=== PATIENT | male | born 1975 | race Caucasian/White ===

== ENCOUNTER 2017-05-22 16:55 | Emergency (ER) | payer MEDICAID, SELFPAY ==
[2017-05-22 17:01] VITALS: BP 135/85; PULSE 98; RESP 18; TEMP 37.1; O2SAT 96; BMI 20.9
--- NOTE | 2017-05-22 17:21 | XR_ITS ---
XR ribs BI min 4V w CXR1V COMPARISON: PA and lateral chest 04/30/2011 HISTORY: Bilateral chest wall pain TECHNIQUE: PA chest and bilateral rib oblique films FINDINGS: Lung leyva are well expanded and are clear of infiltrate. There is an old healed fracture of the right fifth rib posterior axillary line. All the remaining ribs bilaterally. Intact. There is no pneumothorax. IMPRESSION: Negative for acute rib fracture
[2017-05-22 17:24] VITALS: BP 122/81; PULSE 104; RESP 18; TEMP 36.6; O2SAT 98; BMI 21.6
--- NOTE | 2017-05-22 17:41 | HMH.EDUTC ---
[facility] [place] Clinical Impression: Rib pain on left side Disposition: Home, Self-Care Condition on Discharge: Good Instructions: DI for Chronic Pain -- Adult Additional Instructions: Take Ibuprofen as needed for pain Follow up with family doctor in 24-48 hours if no improvement or worsening of symptoms Return if needed Straight to ER if any life threatening symptoms such as trouble breathing or chest pain Prescriptions: Ibuprofen [Ibuprofen 600mg Tab] 600 mg PO Q6H PRN #20 tab PRN Reason: Moderate Pain Referrals: Arpita Carroll MD [Primary Care Provider] - Forms: Work/School Release Time of Disposition: 18:14 Medical Decision Making - Medical Records Medical records reviewed: Yes: I reviewed the patient's medical records. - Noah Inquiry Pt receiving controlled substance: No Noah was queried for this patient: No Vital Signs: 05/22/17 17:01 05/22/17 17:24 Temperature 98.8 F 98 F Temperature Source Temporal Artery Scan Temporal Artery Scan Pulse Rate [Right Radial] 98 H 104 H Respiratory Rate 18 18 Blood Pressure [Right Arm] 135/85 122/81 Blood Pressure Mean [Right Arm] 101 94 Blood Pressure Source [Right Arm] Automatic Cuff Blood Pressure Position [Right Arm] Sitting 02 Sat by Pulse Oximetry 96 98 Oxygen Delivery Method Room Air Orders (Tests/Meds): ORDERS Category Date Time Status XR ribs BI min 4V w CXR1V Stat Exams 05/22/17 17:21 Taken - Radiology Data #1 Image(s): Other (left rib pain) Image Reviewed: Yes I reviewed the patient's radiology image w/the ED provider Preliminary Findings: Normal/NAD, No Fracture Seen Discussed Dr Jean Baptiste no acute finding [facility] [place] - General Stated complaint: Left rib pain Time Seen by Provider: 05/22/17 17:10 Mode of Arrival: Family Vehicle Source of Information: Patient Limitations: No Limitations Description of Symptoms (Recalled from Triage Doc. by RN): C/O SORE RIBS SINCE THIS AM. NO KNOW INJURY HEENT Symptoms (Recalled from RN notes): No Resp Symptoms (Recalled from RN notes): No Skin Symptoms (Recalled from RN notes): No MS Symptoms (Recalled from RN notes): Yes Functional Status (Recalled from RN notes): N/A - History of Present Illness Provider Complaint: Patient states that he woke up about 4am this morning with pain in his left lower rib area that hurts with movement States that he has not hurt himself or his ribs that he is aware of State that pain is worse with movement or cough Denies SOA, Denies injury - Related Data Home Medications Medication Instructions Recorded Confirmed LORazepam [Ativan 0.5mg tablet] 0.5 mg PO TID 05/22/17 05/22/17 Metoprolol Tartrate [Lopressor 25 mg PO DAILY 05/22/17 05/22/17 25mg tablet] hydroCHLOROthiazide [HCTZ 12.5mg 12.5 mg PO DAILY 05/22/17 05/22/17 cap] Previous Rx's Medication Instructions Recorded Ibuprofen [Ibuprofen 600mg Tab] 600 mg PO Q6H PRN #20 tab 05/22/17 Allergies Allergy/AdvReac Type Severity Reaction Status Date / Time Iodinated Contrast Media - Allergy Verified 05/22/17 17:30 Oral and - Worker's Comp Is this a Worker's Comp case?: No H History I have reviewed the patient's past medical history: Yes - Social History Smoking Status: Current every day smoker Tobacco Type: cigarettes Alcohol Intake: never - Psychiatric History Expresses thoughts of harming self/others: None Suicide Plan Description: No Plan ROS Obtained: Yes All systems reviewed & no additional complaints Physical Exam - General General appearance: alert, in no apparent distress - Chest Chest inspection: Present: normal inspection, symmetric chest wall rise. Absent: tenderness - Respiratory Respiratory exam: Present: normal lung sounds bilaterally. Absent: respiratory distress - Cardiovascular Cardiovascular exam: Present: regular rate, normal rhythm. Absent: JVD - Abdominal Exam Abdominal exam: Present: soft, normal bowel sounds. A
--- NOTE | 2017-05-22 17:46 | ED_ITS ---
[facility] [place] Clinical Impression: Rib pain on left side Disposition: Home, Self-Care Condition on Discharge: Good Instructions: DI for Chronic Pain -- Adult Additional Instructions: Take Ibuprofen as needed for pain Follow up with family doctor in 24-48 hours if no improvement or worsening of symptoms Return if needed Straight to ER if any life threatening symptoms such as trouble breathing or chest pain Prescriptions: Ibuprofen [Ibuprofen 600mg Tab] 600 mg PO Q6H PRN #20 tab PRN Reason: Moderate Pain Referrals: Arpita Carroll MD [Primary Care Provider] - Forms: Work/School Release Time of Disposition: 18:14 Medical Decision Making - Medical Records Medical records reviewed: Yes: I reviewed the patient's medical records. - Noah Inquiry Pt receiving controlled substance: No Noah was queried for this patient: No Vital Signs: 05/22/17 17:01 05/22/17 17:24 Temperature 98.8 F 98 F Temperature Source Temporal Artery Scan Temporal Artery Scan Pulse Rate [Right Radial] 98 H 104 H Respiratory Rate 18 18 Blood Pressure [Right Arm] 135/85 122/81 Blood Pressure Mean [Right Arm] 101 94 Blood Pressure Source [Right Arm] Automatic Cuff Blood Pressure Position [Right Arm] Sitting 02 Sat by Pulse Oximetry 96 98 Oxygen Delivery Method Room Air Orders (Tests/Meds): ORDERS Category Date Time Status XR ribs BI min 4V w CXR1V Stat Exams 05/22/17 17:21 Taken - Radiology Data #1 Image(s): Other (left rib pain) Image Reviewed: Yes I reviewed the patient's radiology image w/the ED provider Preliminary Findings: Normal/NAD, No Fracture Seen Discussed Dr Jean Baptiste no acute finding [facility] [place]PI - General Stated complaint: Left rib pain Time Seen by Provider: 05/22/17 17:10 Mode of Arrival: Family Vehicle Source of Information: Patient Limitations: No Limitations Description of Symptoms (Recalled from Triage Doc. by RN): C/O SORE RIBS SINCE THIS AM. NO KNOW INJURY HEENT Symptoms (Recalled from RN notes): No Resp Symptoms (Recalled from RN notes): No Skin Symptoms (Recalled from RN notes): No MS Symptoms (Recalled from RN notes): Yes Functional Status (Recalled from RN notes): N/A - History of Present Illness Provider Complaint: Patient states that he woke up about 4am this morning with pain in his left lower rib area that hurts with movement States that he has not hurt himself or his ribs that he is aware of State that pain is worse with movement or cough Denies SOA, Denies injury - Related Data Home Medications Medication Instructions Recorded Confirmed LORazepam [Ativan 0.5mg tablet] 0.5 mg PO TID 05/22/17 05/22/17 Metoprolol Tartrate [Lopressor 25 mg PO DAILY 05/22/17 05/22/17 25mg tablet] hydroCHLOROthiazide [HCTZ 12.5mg 12.5 mg PO DAILY 05/22/17 05/22/17 cap] Previous Rx's Medication Instructions Recorded Ibuprofen [Ibuprofen 600mg Tab] 600 mg PO Q6H PRN #20 tab 05/22/17 Allergies Allergy/AdvReac Type Severity Reaction Status Date / Time Iodinated Contrast Media - Allergy Verified 05/22/17 17:30 Oral and - Worker's Comp Is this a Worker's Comp case?: No H History I have reviewed the patient's past medical history: Yes - Social History Smoking Status: Current ev
[2017-05-22 18:20] VITALS: BP 120/78; PULSE 94; RESP 20; TEMP 36.6; O2SAT 98
== END 2017-05-22 18:21 | disposition home or self-care (01) ==
PROVIDERS: Emergency Provider Nurse Practitioner; Family Provider Family Medicine; PCP Family Medicine
DX: R07.89 Other chest pain (principal); F17.210 Nicotine dependence, cigarettes, uncomplicated
CPT/HCPCS: 71111; 99201

== ENCOUNTER → 2018-05-25 17:18 | Outpatient (CLI) | payer MEDICAID, SELFPAY ==
--- NOTE | 2018-05-25 | XR_ITS ---
XR chest 2V HISTORY: ITS.REASON: COUGH, RIB PAIN, WEIGHT LOSS ORDERING PHYSICIAN: Arpita Carroll MD PATIENT AGE: 42 years COMPARISON: None FINDINGS: The cardiomediastinal silhouette and pulmonary vascularity are within normal limits. The lungs are clear without infiltrates, suspicious nodules, or pleural effusions. There is a pectus excavatum deformity resultant silhouetting out of the right heart border. There is normal right fifth rib fracture. No acute bony abnormalities. IMPRESSION: As above, no change with no acute finding
== END ==
PROVIDERS: PCP Family Medicine; Visit Provider Family Medicine
DX: R05 Cough (principal); R07.81 Pleurodynia; R63.4 Abnormal weight loss
CPT/HCPCS: 71046

== ENCOUNTER → 2019-01-28 14:26 | Outpatient (CLI) | payer OTHER, SELFPAY ==
--- NOTE | 2019-01-28 14:40 | ECG_ITS ---
APPROVED REPORT Exam: Resting ECG HR:134 bpm ECG Measurements Heart Rate 134 AXES IA 158 P 84 QRSd 88 QRS 95 QT 272 T 75 QTc 406 <Conclusion> Sinus tachycardia Biatrial enlargement Rightward axis Pulmonary disease pattern Abnormal ECG Electronically signed by : Raffi Durán, 01/28/2019 18:20:08
[2019-01-28 15:13] LABS: Basophils % 0.5 % (0.1-2.0); Eosinophils % 0.4 % (0.1-12.0); Hemoglobin 17.2 g/dL (14.1-18.0); Lymphocytes % 13.8 % (10-50); Mean Corpuscular HGB Conc 34.3 g/dL (31.8-35.4); Mean Corpuscular Hemoglobin 34.7 pg (27.0-31.2); Mean Corpuscular Volume 100.9 fl (80-94); Mean Platelet Volume 7.8 fl (7.4-10.4); Monocytes # 0.7 K/mm3 (0.1-1.0); Monocytes % 9.9 % (1.7-9.3); Neutrophils # 5.3 K/mm3 (1.8-7.8); Neutrophils % 75.5 % (37.0-80.0); Platelet Count 133 K/mm3 (142-424); Red Blood Count 4.96 M/mm3 (4.60-6.20); Red Cell Distribution Width 12.5 % (11.5-17.5)
[2019-01-28 16:53] LABS: Alanine Aminotransferase 65 U/L (12-78); Albumin Level 4.4 gm/dL (3.4-5.0); Albumin/Globulin Ratio 0.9 (1.1-1.8); Alkaline Phosphatase 73 U/L (46-116); Amylase 64 U/L (25-115); Anion Gap 18.7 mEq/L (5-15); Aspartate Amino Transferase 92 U/L (15-37); Bilirubin,Total 1.1 mg/dL (0.2-1.0); Blood Urea Nitrogen 8 mg/dL (7-18); Calcium 9.2 mg/dL (8.5-10.1); Carbon Dioxide 29 mmol/L (21.0-32.0); Chloride 91 mmol/L (98-107); Estimated Glomerular Filt Rate 81 ml/min (>60); Ferritin 498 ng/mL (8-388); GFR (African American) 98 ML/MIN (>60); Gamma Glutamyl Transpeptidase 125 U/L (15-85); Globulin 4.8 gm/dl (1.3-3.2); Glucose 162 mg/dL (74-106); Lipase 347 u/L (73-393); Sodium 136 mmol/L (136-145); Thyroid Stimulating Hormone 0.74 uIU/ml (0.358-3.740); Total Protein,Serum 9.2 gm/dL (6.4-8.2)
[2019-01-28 17:27] LABS: Potassium 2.7 mmoL/L (3.5-5.1)
[2019-01-30 11:33] LABS: Hep A Ab, IgM Negative (Negative); Hepatitis B Core Antibody IgM Negative (Negative); Hepatitis B Surface Antigen Negative (Negative)
[2019-01-31 02:39] LABS: Hepatitis C Antibody <0.1 s/co ratio (0.0-0.9)
[2019-02-03 21:14] LABS: Antinuclear Antibodies (ANA) NEGATIVE
== END ==
PROVIDERS: PCP Nurse Practitioner Family; Visit Provider Nurse Practitioner Family
DX: R00.0 Tachycardia, unspecified (principal); R11.2 Nausea with vomiting, unspecified; R10.9 Unspecified abdominal pain; R63.4 Abnormal weight loss
CPT/HCPCS: 36415; 80053; 80074; 82150; 82728; 82977; 83690; 83735; 84439; 84443; 85025; 86038; 86225; 86235; 93005

== ENCOUNTER → 2019-08-24 15:53 | Outpatient (CLI) | payer OTHER, SELFPAY ==
--- NOTE | 2019-08-24 | XR_ITS ---
PROCEDURE: XR CERVICAL SPINE 4V CLINICAL INDICATION: Neck pain and headache COMPARISON: No exams were available for comparison FINDINGS: Normal alignment. The lateral view is slightly rotated. Degenerative disc disease C4-C5 C5-C6 and C6-C7. No acute fracture or dislocation. Mild cervical curvature convex right. There is mild foraminal narrowing on the right at C5-C6 from uncovertebral hypertrophy. IMPRESSION: Cervical spondylosis as described above. Dictated by: Mustapha Dempsey MD 08/24/2019 16:51 Electronically signed by Mustapha Dempsey MD in [place] 08/24/2019 16:51
== END ==
PROVIDERS: PCP Family Medicine; Visit Provider Family Medicine
DX: M54.2 Cervicalgia (principal)
CPT/HCPCS: 72050

== ENCOUNTER 2019-10-07 15:30 | Outpatient (RCR) | payer OTHER, SELFPAY | END 2019-10-07 15:35 | disposition home or self-care (01) | LOC: PT 15:30 | PROVIDERS: PCP Family Medicine; Visit Provider Family Medicine | DX: M54.2 Cervicalgia (principal) | CPT/HCPCS: 20560; 97010; 97012; 97014; 97035; 97110; 97140; 97163; G0283 ==

== ENCOUNTER 2019-11-02 07:47 | Outpatient (RCR) | payer OTHER, SELFPAY ==
--- NOTE | 2019-11-02 08:22 | HMH.PTOPEV ---
PT Outpatient Evaluation Rehab PT Outpatient Evaluation Start: 11/02/19 08:15 Freq: Status: Active Protocol: Document 11/02/19 08:15 GHASSAN (Rec: 11/02/19 08:22 GHASSAN [id number]) Electronically Signed By Dave Kilpatrick, PT 11/02/19 08:15 Outpatient Therapy Subjective History Subjective History Pt reports h/o chronic neck since waking up on the morning of 08/13/19, insidious onset pain. Pt reports localized L sided neck from the outset, and improved s/s w/PT treatments ~1 month ago. Pt reports slight exacerbation since D/C from therapy. Pt currently reports localized L sided neck pain, no radicular s/s. Chief Complaint Pain,Stiff,Catches/Locks Symptom Type Ache,Sharp,Dull Symptoms Relieved By Rest/Positioning Symptoms Aggravated By Physical Activity,Lifting Prior Functional Limitations Lifting,Housework Current Functional Limitations Lifting,Housework Symptom Description Constant but Variable Level of pain today (0-10) 2 Pain scale - at its best (0-10) 2 Pain scale - at its worst (0-10) 5 Cervical Eval Palpation Cervical Muscles L Cervical Paraspinal,L Suboccipital,L CT Junction Cervical/Thoracic Palpation Findings Tenderness,Trigger Point Posture Head/C-Spine Posture Sitting Position Flexed Head/C-Spine Posture Standing Position Flexed Flexibility Deficits Levaetor Scapulae Muscle Length (L) Mild Tightness Scalene Group Muscle Length (L) Moderate Tightness Passive Joint Mobility Cervical PIVM Dec: R OA L OA R AA L AA R C2/3 L C2/3 R C3/4 L C3/4 R C4/5 L C4/5 R C5/6 L C5/6 R C6/7 L C6/7 R C7/T1 L C7/T1 AROM Cervical Spine Extension Active Range of 0-15 Motion (degrees) Cervical Spine Flexion Active Range of 0-55 Motion (degrees) Cervical Spine Right Lateral Flexion 0-15 Active Range of Motion (degrees) Cervical Spine Left Lateral Flexion
== END 2019-11-02 09:00 | disposition home or self-care (01) ==
LOC: PT 07:47
PROVIDERS: PCP Family Medicine; Visit Provider Family Medicine
DX: M54.2 Cervicalgia (principal)
CPT/HCPCS: 97163

== ENCOUNTER 2020-01-24 16:23 | Emergency (ER) | payer OTHER, SELFPAY ==
[2020-01-24 16:51] VITALS: BP 109/72; PULSE 86; RESP 19; TEMP 36.8; O2SAT 99; BMI 19.5
--- NOTE | 2020-01-24 17:00 | HMH.EDUTC ---
[facility] [place] [facility] [place] Clinical Impression: Encounter for laboratory testing for COVID-19 virus Disposition: Home, Self-Care Condition on Discharge: Good Instructions: Preventing the Spread of Coronavirus Discharge Instructions Additional Instructions: *Monitor Temp, Over the counter Motrin or Tylenol as directed/as needed Tylenol every 4 hours and Motrin every 6 hours (as long as your family doctor has told you that you can take it) for fever or pain. and straight to ER if unable to lower temp less than 101.0 after medication given *Warm salt water gargles may help to soothe the throat *Throat Lozenges *Warm fluids like tea with honey may help to soothe the throat *Sleep elevated *Humidifier/Vaporizer Follow up IMMEDIATELY for new or worsening symptoms or no Noticeable improvement over the next 48-72 hours. 911 for difficulty breathing or swallowing You were tested for today for COVID19 your test result should be back in the next 24-48 hours, you may call to the [facility] to see if your test results are back in the next 48 hours [phone] [facility] hours are 9am-9pm You was given a handout with instructions for Self Quarantine and Self isolation for while you wait on test results and what to do if they are positive If you are positive the Health Dept will be contacting you also Referrals: Arpita Carroll MD [Primary Care Provider] - As needed Forms: Work/School Release Time of Disposition: 17:04 Medical Decision Making - Noah Inquiry Pt receiving controlled substance: No Noah was queried for this patient: No Vital Signs: 01/24/20 16:51 Temperature 98.2 F Temperature Source Oral Pulse Rate [Radial] 86 Respiratory Rate 19 Blood Pressure [Right Arm] 109/72 L Blood Pressure Mean [Right Arm] 84 Blood Pressure Source [Right Arm] Automatic Cuff Blood Pressure Position [Right Arm] Sitting 02 Sat by Pulse Oximetry 99 Oxygen Delivery Method Room Air Orders (Tests/Meds): ORDERS Category Date Time Status Covid-19 Nasal PCR Sendout Mark Stat Lab 01/24/20 16:41 Ordered [facility] [place] [facility] [place] - General Stated complaint: covid test no known exposure sore throat Time Seen by Provider: 01/24/20 17:00 Mode of Arrival: Ambulatory Source of Information: Patient Limitations: No Limitations Description of Symptoms (Recalled from Triage Doc. by RN): wants covid test. no symptoms HEENT Symptoms (Recalled from RN notes): No Resp Symptoms (Recalled from RN notes): No Skin Symptoms (Recalled from RN notes): No MS Symptoms (Recalled from RN notes): No Functional Status (Recalled from RN notes): wnl - History of Present Illness Provider Complaint: Patient state that he recently attended a wedding and no one was wearing a mask States that he lives with his elderly mother and after he got home he came in to get tested States that he is an everyday smoker and always has a cough but denies any symptoms - Related Data Home Medications Medication Instructions Recorded Confirmed Metoprolol Tartrate [Lopressor 25 mg PO DAILY 05/22/17 04/04/19 25mg tablet] hydroCHLOROthiazide [HCTZ 12.5mg 12.5 mg PO DAILY 05/22/17 04/04/19 cap] Previous Rx's Medication Instructions Recorded Famotidine [Pepcid 20mg Tablet] 20 mg PO BID #60 tab 04/04/19 Allergies Allergy/AdvReac Type Severity Reaction Status Date / Time Iodinated Contrast Media Allergy Verified 05/22/17 17:30 - Worker's Comp Is this a Worker's Comp case?: No [facility] History - Hepatitis A Screen Drug use history?: No High risk sexual behaviors?: No History of sexually transmitted infection?: No Currently employed?: No Childcare worker?: No Do you have indoor plumbing?: Yes Do you have electricity?: Yes Attestation statement:: This patient has been screened for Hepatitis A risk factors. I have reviewed the patient's past medical history: Yes Medical History: Denies:: Cancer, Diabetes Mellitus Type 1, Diabetes Mellitus Type 2, Internal Pacemaker, MRSA
[2020-01-24 17:26] VITALS: BP 109/73; PULSE 86; RESP 19; TEMP 36.8; O2SAT 99
[2020-01-26 12:34] LABS: Covid-19 Nasal PCR Sendout Lex Not Detected
== END 2020-01-24 17:28 | disposition home or self-care (01) ==
PROVIDERS: Emergency Provider Nurse Practitioner; PCP Family Medicine
DX: Z20.828 Contact with and (suspected) exposure to other viral communicable diseases (principal); F17.210 Nicotine dependence, cigarettes, uncomplicated
CPT/HCPCS: 99201; U0004

== ENCOUNTER 2020-10-15 01:54 | Emergency (ER) | payer OTHER, SELFPAY ==
[2020-10-15 02:05] VITALS: BP 138/107; PULSE 80; RESP 17; TEMP 37.3; O2SAT 99; BMI 18.8
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
[2020-10-15 03:06] VITALS: BP 124/70; PULSE 75; RESP 18; TEMP 36.8; O2SAT 98
== END 2020-10-15 03:07 | disposition home or self-care (01) ==
PROVIDERS: Emergency Provider Emergency Medicine; PCP Family Medicine
DX: S62.346A Nondisplaced fracture of base of fifth metacarpal bone, right hand, initial encounter for closed fracture (principal); W22.09XA Striking against other stationary object, initial encounter; Y92.019 Unspecified place in single-family (private) house as the place of occurrence of the external cause; I10 Essential (primary) hypertension; F17.210 Nicotine dependence, cigarettes, uncomplicated
CPT/HCPCS: 73130; 99282

== ENCOUNTER → 2020-10-17 09:50 | Outpatient (CLI) | payer OTHER, SELFPAY ==
--- NOTE | 2020-10-17 10:00 | XR_ITS ---
PROCEDURE: XR CHEST 2V CLINICAL HISTORY: surgery 10/18/20; smoker/ hypertensioni COMPARISON: CR [id number] XR ribs BI min 4V w CXR1V from 05/22/2017 CR CXR2V XR chest 2V from 04/21/2018 CR CXR2V XR chest 2V from 05/25/2018 FINDINGS: The cardiomediastinal silhouette and pulmonary vascularity are within normal limits. COPD changes. Healing fracture is present involving the left 5th and 6th ribs posteriorly. Pectus excavatum deformity is noted. No acute bony abnormalities. IMPRESSION: COPD with pectus excavatum. No change with no acute finding. Dictated by: Mustapha Dempsey MD 10/17/2020 14:59 Mustapha Dempsey MD in [place] 10/17/2020 14:59
[2020-10-17 10:29] LABS: Basophils # 0.1 K/mm3 (0-0.2); Basophils % 0.7 % (0.1-2.0); Eosinophils # 0.5 K/mm3 (0.0-0.4); Eosinophils % 3.9 % (0.1-12.0); Hematocrit 45.9 % (42.0-52.0); Hemoglobin 14.6 g/dL (14.1-18.0); Lymphocytes # 2.9 K/mm3 (0.7-4.5); Lymphocytes % 25.3 % (10-50); Mean Corpuscular HGB Conc 31.9 g/dL (31.8-35.4); Mean Corpuscular Hemoglobin 32.5 pg (27.0-31.2); Mean Corpuscular Volume 101.8 fl (80-94); Mean Platelet Volume 8.1 fl (7.4-10.4); Monocytes # 0.6 K/mm3 (0.1-1.0); Monocytes % 5.5 % (1.7-9.3); Neutrophils # 7.4 K/mm3 (1.8-7.8); Neutrophils % 64.6 % (37.0-80.0); Platelet Count 349 K/mm3 (142-424); Red Blood Count 4.51 M/mm3 (4.60-6.20); Red Cell Distribution Width 14.6 % (11.5-17.5); White Blood Count 11.5 K/mm3 (4.8-10.8)
[2020-10-17 19:13] LABS: Chloride 100 mmol/L (98-107)
[2020-10-17 19:14] LABS: Sodium 139 mmol/L (136-145)
[2020-10-17 19:16] LABS: Alanine Aminotransferase 16 U/L (12-78); Alkaline Phosphatase 71 U/L (38-126); Aspartate Amino Transferase 28 U/L (17-59); Bilirubin,Total 0.3 mg/dl (0.2-1.3); Blood Urea Nitrogen 9 mg/dl (9-20); Estimated Glomerular Filt Rate 144 ml/min (>60); GFR (African American) 175 ML/MIN (>60)
[2020-10-17 19:17] LABS: Albumin Level 4.3 g/dl (3.5-5.0); Albumin/Globulin Ratio 1.3 (1.1-1.8); Calcium 9.6 mg/dl (8.4-10.2); Carbon Dioxide 29 mmol/L (22.0-30.0); Globulin 3.3 g/dL (1.3-3.2); Glucose 96 mg/dl (74-100); Total Protein,Serum 7.6 g/dl (6.3-8.2)
== END ==
PROVIDERS: Visit Provider Orthopaedic Surgery
DX: Z01.818 Encounter for other preprocedural examination (principal); Z11.52 Encounter for screening for COVID-19; S62.306A Unspecified fracture of fifth metacarpal bone, right hand, initial encounter for closed fracture
CPT/HCPCS: 36415; 71046; 80053; 85025; U0003

== ENCOUNTER 2020-10-18 07:51 | Day surgery (SDC) | payer OTHER, SELFPAY ==
[2020-10-17 12:58] VITALS: BMI 19.5
[2020-10-18] VITALS (10 sets, daily range): BP systolic 119–164; BP diastolic 39–95; PULSE 73–84; RESP 16–20; TEMP 36.3–36.9; O2SAT 95–99
--- NOTE | 2020-10-18 | XR_ITS ---
PROCEDURE: XR FINGER RT MIN 2V CLINICAL INDICATION: K WIRE INSERTION IN SURGERY COMPARISON: No exams were available for comparison FINDINGS: Fluoroscopy time: 54 seconds. C-arm is utilized for K-wire insertion at the base of the 5th metacarpal. Crossing wires are placed with good alignment. IMPRESSION: Good alignment status post pinning of the 5th metacarpal fracture Dictated by: Mustapha Dempsey MD 10/18/2020 16:16 Mustapha Dempsey MD in [place] 10/18/2020 16:16
--- NOTE | 2020-10-18 08:31 | HMH.ANESCL ---
[facility] Anesthesia Checklist - Patient Identification Patient Identification: Arm Band, Verbal (Name & ) - Structural Data Admitted From: Home Planned Operative Procedure/s: closed reduction finger Consent for Planned Operative Procedure(s) Verified: Yes Verified Documents: History and Physical - NPO Status Verified Time NPO: 00:00 - Additional verifications Patient : No Anesthesia Reactions: No Hx Blood Transfusions: No Blood Transfusion Reaction: No Cephalosporin Allergy: No Previous Colonoscopy: No - Cardiovascular Assessment Heart Sounds: S1 & S2 Pulse Strength: Baseline Pulse Rhythm: Regular Peripheral Edema: No - Airway Assessment C-Spine Mobility Assessed: Yes TMJ Mobility Assessed: Yes Dentition: Poor Dentition - Neurological Assessment Level of Consciousness: Awake, Alert, Appropriate Hx Seizures: No Numbness or tingling in extremities: No - Anesthesia Plan Anesthesia Risk discussed: Yes Anesthesia Plan: Verified ASA Class: III Anesthesia Type: General [facility] History I have reviewed the patient's past medical history: Yes Medical History: Reports:: Anxiety, Hypertension Denies:: Cancer, Diabetes Mellitus Type 1, Diabetes Mellitus Type 2, Internal Pacemaker, MRSA, Seizures *Have you ever received a pneumonia vaccine?: No *Have you received a flu vaccine this season?: No Other Medical History: Denies: Blood Transfusion Reaction Anesthesia experience/problems:: none Other Surgeries: No: Pacemaker Amputation: No Fractures: No - *Social History Last grade of school completed: Some college Smoking Status: Current every day smoker Tobacco Type: cigarettes # Packs/Day (cigarettes): 1 Alcohol Intake: never Alcohol Intake Frequency:: a few times a week Substance Use Type: marijuana Last Used Substance: unknown *Occupational Status:: other Housing: house Household Members: significant other *Travel in the last 8 weeks: None - Psychiatric History Pschychiatric History:: Reports:: Anxiety Family Hx:: Cancer
--- NOTE | 2020-10-18 10:50 | P.PN_ITS ---
[facility] Anesthesia Record Part I Intake, IV Amount: 750 Estimated blood loss (mL): 0 Urine output (mL): 0 Blood Products used (#): none Blood Pressure: 164/95 SaO2: 97 Pulse Rate: 82 Respiratory Rate: 18 Temperature: 98.3 F Patient is:: Awake, Stable Stable to PACU at:: 10:44
--- NOTE | 2020-10-18 11:16 | PC.NURSE ---
1114-pt transferred to post op at this time, vss, pt stable
--- NOTE | 2020-10-18 11:43 | HMH.OPNOTE ---
Date of procedure: 10/18/20 Pre-op Diagnosis:: Closed, displaced fracture base of fifth metacarpal, right hand Post-op Diagnosis:: Same Procedure performed:: Closed reduction and percutaneous K wire fixation for fifth metacarpal fracture, right hand Surgeon:: Markie Higgins MD Rubber Turner(s):: Jami Tavares PA-C [employer] LIBRARY DIRECTOR:: Other (Murray Ramos) Anesthesia: LMA Estimated blood loss (mL): 1 Clinical Note:: Patient is a 45-year-old [id number] male, who sustained a closed, displaced fracture base of the fifth metacarpal of his RIGHT hand with partial displacement and slight rotational malalignment of the finger. He injured the hand when he punched a refrigerator in anger about 4 days ago. The distal fracture fracture fragment is displaced proximally and dorsally on x-ray and clinically there is mild rotational malalignment of the finger. Following a detailed discussion about the management options including both nonsurgical and surgical with the patient opted for a closed or open reduction and percutaneous pinning/internal fixation as appropriate. Please refer to my office note for full details. Operative findings:: Closed, partially displaced fifth metacarpal base fracture of RIGHT hand with mild rotational malalignment of the finger. The fracture was easily reducible and the finger alignment corrected by closed manipulation. Operative note:: On the day of the procedure the patient and his family were met in the preoperative area and positively identified. The site was appropriately marked. A physical examination was performed and documented. I again discussed the management options including both nonsurgical and surgical. I discussed the proposed surgery, risks and benefits and alternatives in detail. He wished to proceed with surgical remediation. Patient understood the risks, agreed to proceed with the surgery and no guarantees or assurances were given. The patient was brought to the operating room and placed supine on the operating table. The RIGHT upper extremity was placed on a hand table. All the bony prominences were appropriately padded. A general anesthesia was administered by the pipeline technician. Administration of preoperative prophylactic antibiotics was confirmed. A well-padded tourniquet cuff was placed over his the RIGHT upper arm but we did not need to use a tourniquet. The RIGHT hand was prepped and draped in the usual sterile fashion. A preprocedure timeout was performed as per protocol. Under fluoroscopy the fracture was easily reduced by closed manipulation and the finger rotation was corrected. The fracture base of the fifth metacarpal was then stabilized with a retrograde percutaneous K wire, the tip of which was advanced into the hamate. Then a second K wire was placed from the base of the fifth metacarpal across the fracture into the distal fragment in an antegrade fashion. The fracture was cleaned under fluoroscopic control and noted to be well reduced and fixed in a stable fashion. The hand was examined for any rotational malalignment. After making sure the alignment is satisfactory without any residual rotational deformity, and confirming satisfactory reduction and fixation under fluoroscopy the K wires were bent and cut outside the skin. We then placed the protective end caps over the cut end of the K wires. Final fluoroscopic images were obtained and stored. The skin and soft tissue around the incision were infiltrated with 10 mL of 0.5 percent Marcaine with epinephrine. Sterile dressings, mica strapping and ulnar gutter splint were applied. The patient was then reversed from the anesthetic and transferred onto the [facility]. He was then transported to the postoperative recovery area in a stable condition. He tolerated the procedure well and there were no immediate complications. The swab, needle and instrument counts were correct at the end of the procedure as per the scrub team. Following recovery from the anesthetic the patie
--- NOTE | 2020-10-18 13:05 | P.PN_ITS ---
[facility] Anesthesia Record Part II Discharge Time: 11:14 Destination: Surgical Day Care (OP Surgery) PACU nurse assessment reviewed?: Yes Patient Condition:: Good Anesthesia Complications:: None Swallowing reflex intact?: Yes Cyanosis?: No Blood Pressure: 128/80 Pulse Rate: 75 Temperature: 98.1 F Mental Status: Alert & Oriented Pain level:: 2 Nausea and/or vomitting:: None Intake, IV Amount: 50
== END 2020-10-18 11:45 | disposition home or self-care (01) ==
LOC: OR 07:53
PROVIDERS: PCP Family Medicine; Visit Provider Orthopaedic Surgery
PROC: (CPT 26608; principal; 2020-10-18 09:00)
DX: S62.316A Displaced fracture of base of fifth metacarpal bone, right hand, initial encounter for closed fracture (principal); W22.8XXA Striking against or struck by other objects, initial encounter; F17.210 Nicotine dependence, cigarettes, uncomplicated
CPT/HCPCS: 26608; 73140; 76000; 96374; J2405

== ENCOUNTER → 2020-10-24 15:43 | Outpatient (CLI) | payer OTHER, SELFPAY ==
--- NOTE | 2020-10-24 15:46 | XR_ITS ---
PROCEDURE: XR HAND RT MIN 3V CLINICAL INDICATION: s/p RT 4th MC COMPARISON: CR XR HAND RT MIN 3V from 10/15/2020 FINDINGS: 2 crossing K-wires noted along the proximal aspect of the 5th metacarpal stabilizing the previously described fracture which is in good alignment. And medial splint is in place. The joint spaces are well-preserved. No significant degenerative/arthritic changes. No erosive changes evident. Other findings:None. IMPRESSION: Good alignment status post pinning right 5th metacarpal fracture Dictated by: Mustapha Dempsey MD 10/24/2020 15:59 Mustapha Dempsey MD in [place] 10/24/2020 15:59
== END ==
PROVIDERS: PCP Family Medicine; Visit Provider Orthopaedic Surgery
DX: S62.306A Unspecified fracture of fifth metacarpal bone, right hand, initial encounter for closed fracture (principal)
CPT/HCPCS: 73130

== ENCOUNTER → 2020-11-13 09:39 | Outpatient (CLI) | payer OTHER, SELFPAY ==
--- NOTE | 2020-11-13 09:43 | XR_ITS ---
PROCEDURE: XR HAND RT MIN 3V CLINICAL INDICATION: sp closed reduction and k wire fixation,dos 10/18/20 COMPARISON: CR XR HAND RT MIN 3V from 10/15/2020 CR XR HAND RT MIN 3V from 10/24/2020 FINDINGS: K-wires remain in place stabilizing the fracture at the base of the 5th metacarpal. There is good alignment. Splint has been removed. The joint spaces are well-preserved. No significant degenerative/arthritic changes. No erosive changes evident. Other findings:None. IMPRESSION: Good alignment status post K-wire fixation 5th metacarpal fracture Dictated by: Mustapha Dempsey MD 11/13/2020 12:00 Mustapha Dempsey MD in [place] 11/13/2020 12:00
== END ==
PROVIDERS: PCP Family Medicine; Visit Provider Orthopaedic Surgery
DX: Z09 Encounter for follow-up examination after completed treatment for conditions other than malignant neoplasm (principal)
CPT/HCPCS: 73130

== ENCOUNTER → 2020-12-04 10:39 | Outpatient (CLI) | payer OTHER, SELFPAY ==
--- NOTE | 2020-12-04 10:45 | XR_ITS ---
PROCEDURE: XR HAND RT MIN 3V CLINICAL INDICATION: s/p right 4th MC COMPARISON: CR XR HAND RT MIN 3V from 10/15/2020 CR XR HAND RT MIN 3V from 10/24/2020 CR XR HAND RT MIN 3V from 11/13/2020 FINDINGS: There has been interval removal of the K-wires with good alignment of the 5th metacarpal fracture. There is a faint transverse lucency through the proximal aspect of the 4th metacarpal possibly related to postsurgical change or nondisplaced fracture. The joint spaces are well-preserved. No significant degenerative/arthritic changes. No erosive changes evident. Other findings:None. IMPRESSION: Good alignment healing 5th metacarpal fracture. Possible nondisplaced fracture versus for surgical change proximal 4th metacarpal. Dictated by: Mustapha Dempsey MD 12/04/2020 11:30 Mustapha Dempsey MD in [place] 12/04/2020 11:30
== END ==
PROVIDERS: PCP Family Medicine; Visit Provider Orthopaedic Surgery
DX: S62.316D Displaced fracture of base of fifth metacarpal bone, right hand, subsequent encounter for fracture with routine healing (principal); Z09 Encounter for follow-up examination after completed treatment for conditions other than malignant neoplasm
CPT/HCPCS: 73130

== ENCOUNTER 2021-03-11 11:33 | Observation (INO) | payer OTHER, SELFPAY ==
[2021-03-11] VITALS (13 sets, daily range): BP systolic 119–164; BP diastolic 79–98; PULSE 81–99; RESP 15–18; TEMP 36.8–37.2; O2SAT 97–100; BMI 21.5; BMI 20.9; BMI 19.1
--- NOTE | 2021-03-11 11:41 | CT_ITS ---
FINAL REPORT TECHNIQUE: Axial CT images were performed through the brain. Coronal reformats were submitted and reviewed. This study was performed with techniques to keep radiation doses as low as reasonably achievable (ALARA). Individualized dose reduction techniques using automated exposure control or adjustment of mA and/or kV according to the patient's size were employed. CLINICAL HISTORY: poss szr, h/o brain tumor surgery FINDINGS: There is Mild atrophy and associated ex vacuo dilatation of the ventricles. There is no mass effect or midline shift. There is no acute hemorrhage. The posterior fossa is without acute abnormality. There is minimal mucoperiosteal thickening in the sphenoid sinus. there is a large midline frontal craniotomy defect with overlying mesh. IMPRESSION: Large midline frontal craniotomy defect. Atrophy. No acute intracranial abnormality. Reviewed, Interpreted and Dictated by Tommy Zhang MD Transcribed by Garland Rowland Authenticated by Tommy Zhang MD on 03/11/2021 01:02:22 PM [facility]
--- NOTE | 2021-03-11 11:42 | HMH.EDGENADL ---
ED Disposition Clinical Impression: GWEN (acute kidney injury), COVID-19, Hypokalemia Disposition: Admitted As Inpatient Condition on Discharge: Good Referrals: Arpita Carroll MD [Primary Care Provider] - - Critical Care Critical Care Time: No Attestation: On 03/11/21, the high probability of a clinically significant, sudden or life threatening deterioration of the following system(s) required my full and direct attention, intervention and personal management. The time I documented below is in addition to time spent performing reported procedures but includes the following listed in this critical care notation. Medical Decision Making - Medical Records Medical records reviewed: Yes: I reviewed the patient's medical records. - Noah Inquiry Pt receiving controlled substance: No Vital Signs: 03/11/21 11:44 03/11/21 12:37 Temperature 98.4 F Temperature Source Oral Pulse Rate 84 Pulse Rate [Left Radial] 87 Respiratory Rate 18 Blood Pressure 122/89 Blood Pressure [Right Arm] 123/84 Blood Pressure Mean [Right Arm] 97 02 Sat by Pulse Oximetry 99 97 Oxygen Delivery Method Room Air Room Air - Lab Data Lab Results 03/11/21 11:41: WBC 10.6, RBC 5.67, Hgb 18.2 H, Hct 55.0 H, MCV 97.1 H, MCH 32.0 H, MCHC 32.9, RDW 14.4, Plt Count 297, MPV 8.4, Neut % (Auto) 81.2 H, Lymph % (Auto) 8.5 L, [place] % (Auto) 7.9, Eos % (Auto) 0.3, Baso % (Auto) 2.1 H, Neut # (Auto) 8.6 H, Lymph # (Auto) 0.9, [place] # (Auto) 0.8, Eos # (Auto) 0.0, Baso # (Auto) 0.2 03/11/21 11:41: Sodium 125 L, Potassium 2.3 L*, Chloride 60 L, Carbon Dioxide 42 H*, Anion Gap 25.3 H, BUN 88 H, Creatinine 2.90 H, Estimated Creat Clear 30, Estimated GFR 23 L, Est GFR ( Amer) 28 L, Glucose 197 H, Calcium 9.4, Total Bilirubin 1.5 H, AST 66 H, ALT 58, Alkaline Phosphatase 86, Troponin I 0.06 H, Total Protein 9.2 H, Albumin 5.0, Globulin 4.2 H, Albumin/Globulin Ratio 1.2 03/11/21 11:44: Group A Strep Rapid Negative 03/11/21 12:33: SARS-CoV-2 (PCR) Detected A, Influenza A Untype (PCR) Not detected, Influenza Type B (PCR) Not detected Result diagrams: 03/11/21 11:41 03/11/21 11:41 Orders (Tests/Meds): ED MEDICATIONS Discontinued Medications Generic Name Dose Route Start Last Admin Trade Name Freq PRN Reason Stop Dose Admin Aspirin 324 mg 03/11/21 12:37 03/11/21 12:39 Aspirin 81mg Chewable Tablet PO 03/11/21 12:38 Not Given ONCE ONE Sodium Chloride 500 mls @ 999 mls/hr 03/11/21 12:30 03/11/21 12:35 Sod Chlor 0.9% 1000ml Bag IV 03/11/21 13:00 Not Given .Q31M CONSTANZA Sodium Chloride 500 mls @ 999 mls/hr 03/11/21 12:30 03/11/21 12:35 Sod Chlor 0.9% 1000ml Bag IV 03/11/21 13:00 Not Given .Q31M CONSTANZA Potassium Chloride/Water 100 mls @ 100 mls/hr 03/11/21 12:31 03/11/21 12:38 Potassium Chloride 10meq/100ml Ivpb IV 03/11/21 13:30 100 mls/hr ONCE ONE Administration Sodium Chloride 1,000 mls @ 999 mls/hr 03/11/21 12:45 03/11/21 12:38 Sod Chlor 0.9% 1000ml Bag IV 03/11/21 13:45 999 mls/hr .Q1H1M CONSTANZA Administration Levetiracetam 1,000 mg/ Sodium 110 mls @ 220 mls/hr 03/11/21 13:52 Chloride IV 03/11/21 13:53 ONCE ONE Potassium Chloride 60 meq 03/11/21 12:30 03/11/21 12:38 Potassium Chloride 20meq Tab PO 03/11/21 12:31 20 meq ONCE ONE Administration ORDERS Category Date Time Status CT head/brain wo con Stat Cat Scan 03/11/21 11:41 Taken Chest XR -- portable [XR chest portable] Stat Exams 03/11/21 13:45 Ordered Covid-19 Nasal PCR ([facility]) Routine Lab 03/11/21 11:41 Received Troponin I Q3H Lab 03/11/21 15:00 Ordered Troponin I Q3H Lab 03/11/21 18:00 Ordered Strep Screen Confirmation Stat Micro 03/11/21 11:44 Received - ECG Data Tracing #1 I reviewed this ECG and interpreted as documented below: ekg by me nsr, kimber, lae, non spec st changes - Physician Consults Physician Consulted: dr gilmore Reason -: Admission Comment/Response: dr gilmore accepyts admit
--- NOTE | 2021-03-11 11:50 | ECG_ITS ---
APPROVED REPORT Exam: Resting ECG HR:87 bpm ECG Measurements Heart Rate 87 AXES MO 167 P 74 QRSd 103 QRS 86 QT 500 T 30 QTc 544 Conclusion SINUS RHYTHM RIGHT ATRIAL ENLARGEMENT [0.3mV P-WAVE] LEFT ATRIAL ENLARGEMENT [-0.15mV P-WAVE IN V1/V2] POSSIBLE RIGHT VENTRICULAR CONDUCTION DELAY [RSR (QR) IN V1/V2] ST DEVIATION AND MODERATE T-WAVE ABNORMALITY, CONSIDER INFERIOR ISCHEMIA [-0.1+ mV T-WAVE IN II/aVF] ABNORMAL ECG UNCONFIRMED REPORT Electronically signed by : Reg Olivo MD 03/11/2021 18:32:52
--- NOTE | 2021-03-11 11:55 | PC.NURSE ---
Patient to CT with registered diet technician
[2021-03-11 12:13] LABS: Sodium 125 mmol/L (136-145)
[2021-03-11 12:16] LABS: Alanine Aminotransferase 58 U/L (12-78); Albumin/Globulin Ratio 1.2 (1.1-1.8); Alkaline Phosphatase 86 U/L (38-126); Aspartate Amino Transferase 66 U/L (17-59); Bilirubin,Total 1.5 mg/dl (0.2-1.3); Calcium 9.4 mg/dl (8.4-10.2); Creatinine Clearance Estimated 30 mL/min (50-200); Estimated Glomerular Filt Rate 23 ml/min (>60); GFR (African American) 28 ML/MIN (>60); Globulin 4.2 g/dL (1.3-3.2); Glucose 197 mg/dl (74-100); Total Protein,Serum 9.2 g/dl (6.3-8.2)
[2021-03-11 12:17] LABS: Basophils # 0.2 K/mm3 (0-0.2); Basophils % 2.1 % (0.1-2.0); Eosinophils % 0.3 % (0.1-12.0); Lymphocytes # 0.9 K/mm3 (0.7-4.5); Lymphocytes % 8.5 % (10-50); Mean Corpuscular HGB Conc 32.9 g/dL (31.8-35.4); Mean Corpuscular Volume 97.1 fl (80-94); Mean Platelet Volume 8.4 fl (7.4-10.4); Monocytes # 0.8 K/mm3 (0.1-1.0); Monocytes % 7.9 % (1.7-9.3); Neutrophils # 8.6 K/mm3 (1.8-7.8); Neutrophils % 81.2 % (37.0-80.0); Platelet Count 297 K/mm3 (142-424); Red Blood Count 5.67 M/mm3 (4.60-6.20); Red Cell Distribution Width 14.4 % (11.5-17.5); White Blood Count 10.6 K/mm3 (4.8-10.8)
[2021-03-11 12:17] LABS: Strep Scrn Group A (Rapid) Negative (Negative)
[2021-03-11 12:24] LABS: Anion Gap 25.3 mEq/L (5-15); Carbon Dioxide 42 mmol/L (22.0-30.0)
[2021-03-11 12:27] LABS: Blood Urea Nitrogen 88 mg/dl (9-20); Chloride 60 mmol/L (98-107); Potassium 2.3 mmoL/L (3.5-5.1)
[2021-03-11 12:28] LABS: Troponin I 0.06 ng/ml (0.00-0.034)
[2021-03-11 12:33] LABS: Hemoglobin 18.2 g/dL (14.1-18.0)
[2021-03-11 12:39] LABS: Influenza A, PCR Not Detected (NotDetected); Influenza B, PCR Not Detected (NotDetected)
[2021-03-11 13:15] LABS: Coronavirus 19, PCR Detected (NotDetected)
--- NOTE | 2021-03-11 14:20 | HMH.PHAINT ---
verified pt medications via fill history from pharmacy
--- NOTE | 2021-03-11 14:46 | PC.NURSE ---
called report to shaniqua sewell
[2021-03-11 15:46] LABS: Troponin I 0.03 ng/ml (0.00-0.034)
--- NOTE | 2021-03-11 15:53 | XR_ITS ---
FINAL REPORT CLINICAL HISTORY: cp/ covid FINDINGS: The heart size is normal. The mediastinum is within normal limits. There is no acute cardiopulmonary process. There is no pleural effusion. There is no pneumothorax. The bony thorax is intact. IMPRESSION: No acute cardiopulmonary process. Reviewed, Interpreted and Dictated by Tommy Zhang MD Transcribed by Garland Rowland Authenticated by Tommy Zhang MD on 03/11/2021 04:38:56 PM [facility]
--- NOTE | 2021-03-11 17:09 | HMH.HP ---
*Admission Date: 03/11/21 *Chief complaint: Apparent seizure *History of present illness: 45-year-old male presented to the emergency department after having what appeared to be witnessed seizures at work. Patient recalls he was at work performing normal activities 1 minute, and then the next thing he can remember is he awoke laying on the ground with coworkers telling him he had a seizure. He was lucid and alert after his seizure . Patient came to the emergency department for evaluation. He also reports 5 days of illness that began last Thursday. Symptoms seem to appear after patient had drank rather heavily due to relationship problems. The patient he has an alcoholic. By he had noticed vomiting along with general malaise. He attempted to try to drink beer as he suspected he may be withdrawing from alcohol but had difficulty even drinking a single beer (this took 3 hours). He later developed sore throat and he has developed some cough and shortness of breath as well. In the emergency department patient underwent evaluation and was found to have acute kidney injury while he continued to vomit in the emergency department. He was hypokalemic. COVID-19 test was positive. Patient was admitted for treatment of dehydration, acute kidney injury, hypokalemia. [facility] History I have reviewed the patient's past medical history: Yes Medical History: Reports:: Anxiety, Hypertension, Seizures (From alcohol withdrawal) Denies:: Cancer, Diabetes Mellitus Type 1, Diabetes Mellitus Type 2, Internal Pacemaker, MRSA *Have you ever received a pneumonia vaccine?: No *Have you received a flu vaccine this season?: No Other Medical History: Denies: Blood Transfusion Reaction Comment:: Alcoholism, alcohol withdrawal seizures Other Surgeries: No: Pacemaker Amputation: No Fractures: No - *Social History Smoking Status: Current every day smoker Tobacco Type: cigarettes # Packs/Day (cigarettes): 1 Alcohol Intake: current Alcohol Intake Frequency:: a few times a week Substance Use Type: marijuana *Occupational Status:: unemployed Housing: house Household Members: significant other *Travel in the last 8 weeks: None - Psychiatric History Pschychiatric History:: Reports:: Anxiety Family Hx:: Cancer Review of Systems - Review of Systems Review of systems:: pertinent systems reviewed and negative unless documented below Meds Home Medications Medication Instructions Recorded Confirmed Type Metoprolol Tartrate [Lopressor 25 mg PO DAILY 05/22/17 03/11/21 History 25mg tablet] Cetirizine HCl [Zyrtec] 10 mg PO DAILY 10/17/20 03/11/21 History Buspirone HCl [Buspar 10mg 10 mg PO BID 03/11/21 03/11/21 History tablet] Sildenafil Citrate [Viagra] 100 mg PO DAILY PRN 03/11/21 03/11/21 History hydrOXYzine pamoate [Hydroxyzine 50 mg PO TID PRN 03/11/21 03/11/21 History Pamoate] Allergies Allergy/AdvReac Type Severity Reaction Status Date / Time Iodinated Contrast Media Allergy HIVES Verified 12/04/20 11:04 Exam Vital signs and Labs for Last 24 Hours: Temp Pulse Resp BP Pulse Ox 98.9 F 82 15 119/85 98 03/11/21 16:16 03/11/21 16:16 03/11/21 16:16 03/11/21 16:16 03/11/21 16:16 Laboratory Results - last 24 hr 03/11/21 11:41: WBC 10.6, RBC 5.67, Hgb 18.2 H, Hct 55.0 H, MCV 97.1 H, MCH 32.0 H, MCHC 32.9, RDW 14.4, Plt Count 297, MPV 8.4, Neut % (Auto) 81.2 H, Lymph % (Auto) 8.5 L, [place] % (Auto) 7.9, Eos % (Auto) 0.3, Baso % (Auto) 2.1 H, Neut # (Auto) 8.6 H, Lymph # (Auto) 0.9, [place] # (Auto) 0.8, Eos # (Auto) 0.0, Baso # (Auto) 0.2 03/11/21 11:41: Sodium 125 L, Potassium 2.3 L*, Chloride 60 L, Carbon Dioxide 42 H*, Anion Gap 25.3 H, BUN 88 H, Creatinine 2.90 H, Estimated Creat Clear 30, Estimated GFR 23 L, Est GFR ( Amer) 28 L, Glucose 197 H, Calcium 9.4, Total Bilirubin 1.5 H, AST 66 H, ALT 58, Alkaline Phosphatase 86, Troponin I 0.06 H, Total Protein 9.2 H, Albumin 5.0, Globulin 4.2 H, Albumin/Globulin Ratio 1.
[2021-03-11 21:00] LABS: Anion Gap 12.3 mEq/L (5-15); Blood Urea Nitrogen 75 mg/dl (9-20); Calcium 7.8 mg/dl (8.4-10.2); Carbon Dioxide 38 mmol/L (22.0-30.0); Creatinine Clearance Estimated 47 mL/min (50-200); Estimated Glomerular Filt Rate 43 ml/min (>60); GFR (African American) 53 ML/MIN (>60); Glucose 102 mg/dl (74-100); Magnesium 1.8 mg/dl (1.6-2.3); Sodium 123 mmol/L (136-145)
[2021-03-11 21:08] LABS: Chloride 75 mmol/L (98-107); Potassium 2.3 mmoL/L (3.5-5.1)
[2021-03-12] VITALS (7 sets, daily range): BP systolic 94–140; BP diastolic 53–91; PULSE 67–115; RESP 16–20; TEMP 36.3–37.1; O2SAT 95–100; BMI 19.3
--- NOTE | 2021-03-12 04:26 | PC.NURSE ---
LATE ENTRY- 0400 CARDIAC STRIP NOT OBTAINED.PT REFUSING TO WEAR MENTALLY IMPAIRED TEACHER.NURSE AWARE
--- NOTE | 2021-03-12 07:13 | PC.NURSE ---
At start of shift, pt was a + o x4, pleasant and cooperative. Around 0100, this nurse was notified pt had pulled out their IV. New IV was accessed and 1 mg Ativan was administered. Within a couple minutes, Pt was then found walking out of his room and had pulled out IV again. Pt very confused at this time. Pt was helped back into bed, bed alarm on. Pt continued to get out of bed multiple times to try and wander around causing pt to have to be 1 on 1. Pt continued to become more confused, unable to remember his name. Pt experiencing mod/severe hallucinations. Pt becomes agitated and combative at times. Pt has no IV access at this time, aware. Pt received 2 out of 3 runs of KCL 20 leatha ordered before losing access. Report passed to Miguelina MCQUEEN at this time.
--- NOTE | 2021-03-12 07:15 | P.CONPHA_ITS ---
[facility] Pharm[facility] VTE Monitoring - Patient Demographics Admission date: 03/11/21 Report Date: 03/12/21 Time: 07:15 Allergies/Adverse Reactions: Patient Allergies Iodinated Contrast Media Allergy (Verified 12/04/20 11:04) HIVES Height: 1.8 m Weight: 62.397 kg Patient Problems: Current Active Problems Hypokalemia (Acute) Seizure disorder (Acute) Vomiting (Acute) GWEN (acute kidney injury) (Acute) COVID-19 (Acute) Dehydration (Acute) Hyponatremia (Acute) Alcoholism (Acute) COVID-19 virus infection (Acute) Gastritis (Acute) - VTE Risk Labs: VTE Related Lab Results Hgb 18.2 g/dL (14.1-18.0) H 03/11/21 11:41 Hct 55.0 % (42.0-52.0) H 03/11/21 11:41 Plt Count 297 K/mm3 (142-424) 03/11/21 11:41 BUN 75 mg/dl (9-20) H 03/11/21 20:30 Creatinine 1.70 mg/dl (0.66-1.25) H D 03/11/21 20:30 Estimated Creat Clear 47 mL/min (50-200) 03/11/21 20:30 - Prophylaxis VTE Prophylaxis Ordered?: Yes Types of VTE Prophylaxis: TEDS Knee High Location of Applied Device: Bilateral Lower Extremeties
--- NOTE | 2021-03-12 07:27 | HMH.ACPN2 ---
Internal Medicine - PN: Subj *Date: 03/12/21 *Time: 07:27 Interval history: Patient began showing more severe signs of alcohol withdrawal overnight including hallucinations. Patient was given hourly Ativan. This morning he is ambulatory and mildly agitated but easily redirected. Patient is also continuing to hallucinate Exam Vital signs and Labs for Last 24 Hours: Temp Pulse Resp BP Pulse Ox 98.3 F 84 17 113/82 95 03/12/21 04:00 03/12/21 04:00 03/12/21 04:00 03/12/21 04:00 03/12/21 04:00 Laboratory Results - last 24 hr 03/11/21 11:41: WBC 10.6, RBC 5.67, Hgb 18.2 H, Hct 55.0 H, MCV 97.1 H, MCH 32.0 H, MCHC 32.9, RDW 14.4, Plt Count 297, MPV 8.4, Neut % (Auto) 81.2 H, Lymph % (Auto) 8.5 L, [place] % (Auto) 7.9, Eos % (Auto) 0.3, Baso % (Auto) 2.1 H, Neut # (Auto) 8.6 H, Lymph # (Auto) 0.9, [place] # (Auto) 0.8, Eos # (Auto) 0.0, Baso # (Auto) 0.2 03/11/21 11:41: Sodium 125 L, Potassium 2.3 L*, Chloride 60 L, Carbon Dioxide 42 H*, Anion Gap 25.3 H, BUN 88 H, Creatinine 2.90 H, Estimated Creat Clear 30, Estimated GFR 23 L, Est GFR ( Amer) 28 L, Glucose 197 H, Calcium 9.4, Total Bilirubin 1.5 H, AST 66 H, ALT 58, Alkaline Phosphatase 86, Troponin I 0.06 H, Total Protein 9.2 H, Albumin 5.0, Globulin 4.2 H, Albumin/Globulin Ratio 1.2 03/11/21 11:44: Group A Strep Rapid Negative 03/11/21 12:33: SARS-CoV-2 (PCR) Detected A, Influenza A Untype (PCR) Not detected, Influenza Type B (PCR) Not detected 03/11/21 15:03: Troponin I 0.03 03/11/21 20:30: Magnesium 1.8 03/11/21 20:30: Sodium 123 L, Potassium 2.3 L*, Chloride 75 L D, Carbon Dioxide 38 H, Anion Gap 12.3, BUN 75 H, Creatinine 1.70 H D, Estimated Creat Clear 47, Estimated GFR 43 L, Est GFR ( Amer) 53 L D, Glucose 102 H D, Calcium 7.8 L I & O for Last 24 hours: Intake & Output 03/09/21 03/10/21 03/11/21 03/12/21 11:59 11:59 11:59 11:59 Intake Total 360 / 360 Balance 360 / 360 Weight 150 lb 137 lb 9 oz Narrative: Patient is in no physical distress. Speech is garbled and difficult to understand. Patient appears to be hallucinating it is continuously watching the ceiling. He ambulates rather easily within the room. Lungs are distant but clear. Heart has a regular rate and rhythm. Patient moves all extremities without difficulty. Assessment and Plan (1) Alcohol withdrawal delirium, acute, hyperactive Status: Acute Category: Medical Code(s): F10.231 - Alcohol dependence with withdrawal delirium (2) GWEN (acute kidney injury) Status: Resolved Category: Medical Code(s): N17.9 - Acute kidney failure, unspecified (3) Dehydration Status: Acute Category: Medical Code(s): E86.0 - Dehydration (4) Hyponatremia Status: Acute Category: Medical Code(s): E87.1 - Hypo-osmolality and hyponatremia (5) Alcoholism Status: Acute Category: Medical Code(s): F10.20 - Alcohol dependence, uncomplicated (6) COVID-19 virus infection Status: Acute Category: Medical Code(s): U07.1 - COVID-19 (7) Gastritis Status: Acute Category: Medical Code(s): K29.70 - Gastritis, unspecified, without bleeding (8) Hypokalemia Status: Acute Category: Medical Code(s): E87.6 - Hypokalemia (9) Seizure disorder Status: Acute Category: Medical Code(s): G40.909 - Epilepsy, unspecified, not intractable, without status epilepticus (10) Vomiting Status: Acute Qualifiers: Vomiting type: unspecified Nausea presence: with nausea Qualified Code(s): R11.2 - Nausea with vomiting, unspecified Category: Medical Code(s): R11.10 - Vomiting, unspecified - Assessment and plan all Dx Assessment and Plan for all problems:: 1. Acute kidney injury has improved with IV fluids. At this time patient will not maintain an IV. Renal function will be followed with daily BMPs 2. Patient is actively withdrawing from alcohol. He has received 2 mg of Ativan p.o. hourly since approximately 4 AM. Patient will continue hourl
--- NOTE | 2021-03-12 16:28 | HMH.ACPN2 ---
Internal Medicine - PN: Subj *Date: 03/12/21 *Time: 16:28 Interval history: Patient's withdrawal symptoms continued throughout the day including hyperactivity, agitation, hallucinations. Patient was ultimately given 4 mg of Ativan at around 2 PM and has since calmed down. Currently he is sleeping. Per nursing staff it would seem that patient is still continuing to have severe throat pain with frequent spitting on the floor and sometimes leaving spitting out medications when these are given to him. Exam Vital signs and Labs for Last 24 Hours: Temp Pulse Resp BP Pulse Ox 98.6 F 115 H 17 133/78 99 03/12/21 07:48 03/12/21 07:48 03/12/21 07:48 03/12/21 07:48 03/12/21 07:48 Laboratory Results - last 24 hr 03/11/21 20:30: Magnesium 1.8 03/11/21 20:30: Sodium 123 L, Potassium 2.3 L*, Chloride 75 L D, Carbon Dioxide 38 H, Anion Gap 12.3, BUN 75 H, Creatinine 1.70 H D, Estimated Creat Clear 47, Estimated GFR 43 L, Est GFR ( Amer) 53 L D, Glucose 102 H D, Calcium 7.8 L I & O for Last 24 hours: Intake & Output 03/10/21 03/11/21 03/12/21 03/13/21 11:59 11:59 11:59 11:59 Intake Total 360 / 360 Balance 360 / 360 Weight 150 lb 138 lb 3.677 oz - Constitutional no acute distress (Patient is sleeping) Assessment and Plan (1) Alcohol withdrawal delirium, acute, hyperactive Status: Acute Category: Medical Code(s): F10.231 - Alcohol dependence with withdrawal delirium (2) GWEN (acute kidney injury) Status: Resolved Category: Medical Code(s): N17.9 - Acute kidney failure, unspecified (3) Dehydration Status: Acute Category: Medical Code(s): E86.0 - Dehydration (4) Hyponatremia Status: Acute Category: Medical Code(s): E87.1 - Hypo-osmolality and hyponatremia (5) Alcoholism Status: Acute Category: Medical Code(s): F10.20 - Alcohol dependence, uncomplicated (6) COVID-19 virus infection Status: Acute Category: Medical Code(s): U07.1 - COVID-19 (7) Gastritis Status: Acute Category: Medical Code(s): K29.70 - Gastritis, unspecified, without bleeding (8) Hypokalemia Status: Acute Category: Medical Code(s): E87.6 - Hypokalemia (9) Seizure disorder Status: Acute Category: Medical Code(s): G40.909 - Epilepsy, unspecified, not intractable, without status epilepticus (10) Vomiting Status: Acute Qualifiers: Vomiting type: unspecified Nausea presence: with nausea Qualified Code(s): R11.2 - Nausea with vomiting, unspecified Category: Medical Code(s): R11.10 - Vomiting, unspecified - Assessment and plan all Dx Assessment and Plan for all problems:: Patient will be placed on Ativan 2 mg every 4 hours while awake with as needed ordered as well if CIWA scale is greater than 8. Repeat attempts to draw labs in the morning.
--- NOTE | 2021-03-12 19:57 | PC.NURSE ---
Addendum entered by Dustin Jackson RN 03/12/21 20:35: Dr. Mckenzie also aware of pt continuing to have no IV access, and stated labs could be held off until am, if pt will allow. Original Note: Tech that was one on one with pt this shift stated pt had an assisted fall and hit head, when this nurse assessed pt there were no apparent injuries. This RN did make Dr. Mckenzie aware and he gave NNO's. Meds have been given per apr and ativan did finally help pt to rest. Pt has been sleeping and continued to have a one on one RN at bedside. Pt was very restless, delusional, confused,hallucinating, resistive to care and becoming combative prior to ativan.
[2021-03-13 04:31] VITALS: BMI 19.3
[2021-03-13 07:08] VITALS: BP 139/58; PULSE 85; RESP 20; TEMP 37; O2SAT 90
--- NOTE | 2021-03-13 07:21 | HMH.ACPN2 ---
Internal Medicine - PN: Subj *Date: 03/13/21 *Time: 07:35 Interval history: Patient rested comfortably most of the night but was given scheduled Ativan to ensure there was no further withdrawal. Patient has no recollection of the events of yesterday. Exam Vital signs and Labs for Last 24 Hours: Temp Pulse Resp BP Pulse Ox 98.6 F 85 20 139/58 L 90 L 03/13/21 07:08 03/13/21 07:08 03/13/21 07:08 03/13/21 07:08 03/13/21 07:08 I & O for Last 24 hours: Intake & Output 03/10/21 03/11/21 03/12/21 03/13/21 11:59 11:59 11:59 11:59 Intake Total 360 / 360 Balance 360 / 360 Weight 150 lb 138 lb 3.677 oz 138 lb 3.677 oz Narrative: Patient is awake and alert. He is oriented to place and person. Posterior oropharynx remains erythematous. Neck is supple without lymphadenopathy. Lungs are clear. Heart has a regular rate and rhythm. Abdomen is thin and soft. Assessment and Plan (1) Alcohol withdrawal delirium, acute, hyperactive Status: Acute Category: Medical Code(s): F10.231 - Alcohol dependence with withdrawal delirium (2) GWEN (acute kidney injury) Status: Resolved Category: Medical Code(s): N17.9 - Acute kidney failure, unspecified (3) Dehydration Status: Acute Category: Medical Code(s): E86.0 - Dehydration (4) Hyponatremia Status: Acute Category: Medical Code(s): E87.1 - Hypo-osmolality and hyponatremia (5) Alcoholism Status: Acute Category: Medical Code(s): F10.20 - Alcohol dependence, uncomplicated (6) COVID-19 virus infection Status: Acute Category: Medical Code(s): U07.1 - COVID-19 (7) Gastritis Status: Acute Category: Medical Code(s): K29.70 - Gastritis, unspecified, without bleeding (8) Hypokalemia Status: Acute Category: Medical Code(s): E87.6 - Hypokalemia (9) Seizure disorder Status: Acute Category: Medical Code(s): G40.909 - Epilepsy, unspecified, not intractable, without status epilepticus (10) Vomiting Status: Acute Qualifiers: Vomiting type: unspecified Nausea presence: with nausea Category: Medical Code(s): R11.10 - Vomiting, unspecified - Assessment and plan all Dx Assessment and Plan for all problems:: 1. Continue scheduled Ativan at a dose of 1 mg every 4 hours while awake 2. Await morning labs for further attempts to correct electrolytes 3. Patient will be given oral prednisone for his throat pain
[2021-03-13 07:25] VITALS: BP 151/89; PULSE 91; RESP 16; TEMP 37; O2SAT 97
[2021-03-13 07:34] LABS: Basophils % 0.6 % (0.1-2.0); Eosinophils # 0.1 K/mm3 (0.0-0.4); Eosinophils % 0.9 % (0.1-12.0); Hematocrit 46.8 % (42.0-52.0); Hemoglobin 15.2 g/dL (14.1-18.0); Lymphocytes # 0.9 K/mm3 (0.7-4.5); Lymphocytes % 13.2 % (10-50); Mean Corpuscular HGB Conc 32.5 g/dL (31.8-35.4); Mean Corpuscular Hemoglobin 32.3 pg (27.0-31.2); Mean Corpuscular Volume 99.6 fl (80-94); Mean Platelet Volume 8.2 fl (7.4-10.4); Monocytes # 1.1 K/mm3 (0.1-1.0); Monocytes % 14.9 % (1.7-9.3); Neutrophils % 70.3 % (37.0-80.0); Platelet Count 286 K/mm3 (142-424)
[2021-03-13 07:39] LABS: Blood Urea Nitrogen 37 mg/dl (9-20); Calcium 9.8 mg/dl (8.4-10.2); Chloride 86 mmol/L (98-107); Creatinine Clearance Estimated 81 mL/min (50-200); Estimated Glomerular Filt Rate 80 ml/min (>60); GFR (African American) 97 ML/MIN (>60); Glucose 81 mg/dl (74-100); Sodium 132 mmol/L (136-145)
[2021-03-13 07:47] LABS: Anion Gap 10.7 mEq/L (5-15); Carbon Dioxide 38 mmol/L (22.0-30.0)
[2021-03-13 07:52] LABS: Potassium 2.7 mmoL/L (3.5-5.1)
--- NOTE | 2021-03-13 07:56 | PC.NURSE ---
0750- Spoke to lab of critical K+ of 2.7, verified name, and room number 0752- MD Mckenzie made aware during rounds, orders will be entered per
[2021-03-13 08:00] VITALS: O2SAT 97
[2021-03-13 11:04] VITALS: BP 137/78; PULSE 92; RESP 16; TEMP 37.2; O2SAT 97
[2021-03-13 14:57] VITALS: BP 119/77; PULSE 85; RESP 20; TEMP 36.9; O2SAT 97
--- NOTE | 2021-03-13 18:43 | PC.NURSE ---
Pt has slept most of this shift. Pt is very unsteady while walking, d/t severe tremors. CIWAs this shift have been 4, 4, and 7. They have been q4h d/t to being >8. Pt has continuously complained of his throat hurting, PRN phenol throat spray has been administered per APR. No other acute changes or complaints, will continue to monitor.
[2021-03-13 18:54] VITALS: BP 123/74; PULSE 92; RESP 18; TEMP 36.9; O2SAT 99
[2021-03-14] VITALS: BP 128/81; PULSE 80; RESP 18; TEMP 36.8; O2SAT 96
[2021-03-14 04:11] VITALS: BP 129/85; PULSE 84; RESP 18; TEMP 36.6; O2SAT 98
[2021-03-14 04:16] VITALS: BMI 19.0
[2021-03-14 07:19] LABS: Basophils # 0.1 K/mm3 (0-0.2); Basophils % 0.6 % (0.1-2.0); Eosinophils # 0.1 K/mm3 (0.0-0.4); Eosinophils % 1.1 % (0.1-12.0); Hematocrit 43.3 % (42.0-52.0); Hemoglobin 13.9 g/dL (14.1-18.0); Lymphocytes # 1.6 K/mm3 (0.7-4.5); Lymphocytes % 17.9 % (10-50); Mean Corpuscular Hemoglobin 31.8 pg (27.0-31.2); Mean Corpuscular Volume 99.2 fl (80-94); Monocytes # 1.5 K/mm3 (0.1-1.0); Monocytes % 16.6 % (1.7-9.3); Neutrophils # 5.8 K/mm3 (1.8-7.8); Neutrophils % 63.7 % (37.0-80.0); Platelet Count 283 K/mm3 (142-424); Red Blood Count 4.37 M/mm3 (4.60-6.20)
[2021-03-14 07:37] LABS: Anion Gap 6.1 mEq/L (5-15); Blood Urea Nitrogen 22 mg/dl (9-20); Carbon Dioxide 35 mmol/L (22.0-30.0); Chloride 93 mmol/L (98-107); Creatinine Clearance Estimated 88 mL/min (50-200); Estimated Glomerular Filt Rate 90 ml/min (>60); GFR (African American) 109 ML/MIN (>60); Glucose 94 mg/dl (74-100); Potassium 3.1 mmoL/L (3.5-5.1); Sodium 131 mmol/L (136-145)
[2021-03-14 08:00] VITALS: BP 136/79; PULSE 92; RESP 20; TEMP 37.2; O2SAT 97
--- NOTE | 2021-03-14 08:05 | HMH.ACPN2 ---
Internal Medicine - PN: Subj *Date: 03/14/21 *Time: 08:05 Interval history: Patient's only worry this morning is his persistent throat pain which makes it difficult to swallow. Patient believes there may be something stuck in his throat. Exam Vital signs and Labs for Last 24 Hours: Temp Pulse Resp BP Pulse Ox 98 F 84 18 129/85 98 03/14/21 04:11 03/14/21 04:11 03/14/21 04:11 03/14/21 04:11 03/14/21 04:11 Laboratory Results - last 24 hr 03/14/21 06:28: WBC 9.0 D, RBC 4.37 L, Hgb 13.9 L, Hct 43.3, MCV 99.2 H, MCH 31.8 H, MCHC 32.0, RDW 14.0, Plt Count 283, MPV 8.0, Neut % (Auto) 63.7, Lymph % (Auto) 17.9, [place] % (Auto) 16.6 H, Eos % (Auto) 1.1, Baso % (Auto) 0.6, Neut # (Auto) 5.8, Lymph # (Auto) 1.6, [place] # (Auto) 1.5 H, Eos # (Auto) 0.1, Baso # (Auto) 0.1 03/14/21 06:28: Sodium 131 L, Potassium 3.1 L, Chloride 93 L, Carbon Dioxide 35 H, Anion Gap 6.1, BUN 22 H D, Creatinine 0.90, Estimated Creat Clear 88, Estimated GFR 90, Est GFR ( Amer) 109, Glucose 94, Calcium 9.0 I & O for Last 24 hours: Intake & Output 03/11/21 03/12/21 03/13/21 03/14/21 11:59 11:59 11:59 11:59 Intake Total 360 / 360 360 / 360 600 / 600 Output Total 200 / 200 Balance 360 / 360 360 / 360 400 / 400 Weight 150 lb 138 lb 3.677 oz 138 lb 3.677 oz 135 lb 12.8 oz Microbiology Reports for the Last 24 Hours: Microbiology 03/11/21 11:44 Throat Group A Streptococcus Screen ([facility]ELA) - Final Negative for Group A Streptococcus. Narrative: Patient is still mildly tremulous. Oropharynx is moist and clear and erythema seen 48 hours ago has resolved. Neck is supple without any lymphadenopathy. Lungs are clear. Heart has a regular rate and rhythm. Abdomen is soft. Neurologically patient is tremulous. Assessment and Plan (1) Hypokalemia Status: Acute Category: Medical Code(s): E87.6 - Hypokalemia (2) Alcohol withdrawal delirium, acute, hyperactive Status: Acute Category: Medical Code(s): F10.231 - Alcohol dependence with withdrawal delirium (3) GWEN (acute kidney injury) Status: Resolved Category: Medical Code(s): N17.9 - Acute kidney failure, unspecified (4) Dehydration Status: Resolved Category: Medical Code(s): E86.0 - Dehydration (5) Hyponatremia Status: Resolved Category: Medical Code(s): E87.1 - Hypo-osmolality and hyponatremia (6) Alcoholism Status: Acute Category: Medical Code(s): F10.20 - Alcohol dependence, uncomplicated (7) COVID-19 virus infection Status: Acute Category: Medical Code(s): U07.1 - COVID-19 (8) Gastritis Status: Acute Category: Medical Code(s): K29.70 - Gastritis, unspecified, without bleeding (9) Seizure disorder Status: Ruled-out Category: Medical Code(s): G40.909 - Epilepsy, unspecified, not intractable, without status epilepticus (10) Vomiting Status: Acute Qualifiers: Vomiting type: unspecified Nausea presence: with nausea Category: Medical Code(s): R11.10 - Vomiting, unspecified - Assessment and plan all Dx Assessment and Plan for all problems:: 1. Continue oral potassium replacement 2. Patient has likely significant pharyngeal injury from his gagging and vomiting that occurred prior to admission and that patient purposefully did while he was withdrawing from alcohol when he had the sensation of something being stuck in his throat. Patient will be given a GI cocktail. Pharyngeal erythema has improved significantly 3. Reduce Ativan to 1 mg every 6 hours by mouth for patient's alcohol withdrawal.
--- NOTE | 2021-03-14 08:08 | SW/DCPLANNER ---
PATIENT ADMITTED TO [facility] 03/11 AFTER COWORKERS WITNESSED HIM PASSING OUT AND FALLING ON FLOOR.. IT WAS FELT THAT HE HAD A SEIZURE BUT PATIENT IS A KNOWN ALCOHOLIC AND INCIDENTALLY HE WAS POSITIVE FOR COVID.. PATIENT IS A FUNCTIONAL 45 YEAR OLD.. WILL FOLLOW THROUGH HIS ACUTE CARE STAY AND ASSIST HE IS READY FOR DISPOSITION IN THE NEXT DAYS AHEAD..
[2021-03-14 12:00] VITALS: BP 142/62; PULSE 82; RESP 18; TEMP 36.8; O2SAT 98
[2021-03-14 16:00] VITALS: BP 129/74; PULSE 93; RESP 17; TEMP 36.9; O2SAT 96
[2021-03-14 20:00] VITALS: BP 125/78; PULSE 92; RESP 16; TEMP 36.7; O2SAT 98
[2021-03-15] VITALS: BP 124/78; PULSE 85; RESP 18; TEMP 37.8; O2SAT 99
[2021-03-15 04:00] VITALS: BP 132/90; PULSE 82; RESP 16; TEMP 37.7; O2SAT 99
[2021-03-15 06:00] VITALS: BMI 18.2
--- NOTE | 2021-03-15 07:36 | HMH.DCSUM ---
General - General Admission date:: 03/11/21 Discharge date: 03/15/21 HPI HPI: 45-year-old male presented to the emergency department after having what appeared to be witnessed seizures at work. Patient recalls he was at work performing normal activities 1 minute, and then the next thing he can remember is he awoke laying on the ground with coworkers telling him he had a seizure. He was lucid and alert after his seizure . Patient came to the emergency department for evaluation. He also reports 5 days of illness that began last Thursday. Symptoms seem to appear after patient had drank rather heavily due to relationship problems. The patient he has an alcoholic. By he had noticed vomiting along with general malaise. He attempted to try to drink beer as he suspected he may be withdrawing from alcohol but had difficulty even drinking a single beer (this took 3 hours). He later developed sore throat and he has developed some cough and shortness of breath as well. In the emergency department patient underwent evaluation and was found to have acute kidney injury while he continued to vomit in the emergency department. He was hypokalemic. COVID-19 test was positive. Patient was admitted for treatment of dehydration, acute kidney injury, hypokalemia. Hospital Course Hospital Course: Patient was admitted with diagnosis of suspected seizure, hypokalemia, vomiting and dehydration with acute kidney injury. He was started on IV fluids which quickly corrected his dehydration and acute kidney injury. Patient had no further seizure activity. Hypokalemia was slowly corrected with both IV and oral replacement which was complicated by patient's removal of the IV once he began to go through his severe alcohol withdrawal with associated delirium and hyperactivity. This required frequent and increasing doses of benzodiazepines. As patient has removed his IV he required oral replacement with lorazepam. Patient withdrawal ultimately ceased with use of lorazepam which was then tapered. Patient was incidentally found to have COVID 19 on infection which did come cause severe pharyngitis. Strep test was negative. Patient's pharyngitis was treated with oral prednisone as well as Chloraseptic throat spray. Patient continued to complain of throat pain despite improvement in appearance of the throat. GI cocktail was used to provide additional comfort. On the patient was stable and had reached maximum medical improvement. He declined referral for assistance with his alcoholism. Patient had very little cough or respiratory symptoms associated with his COVID 19 infection. Patient was discharged home Objective Vital signs: Temp Pulse Resp BP Pulse Ox 99.8 F H 82 16 132/90 99 03/15/21 04:00 03/15/21 04:00 03/15/21 04:00 03/15/21 04:00 03/15/21 04:00 no acute distress - *Routine Respiratory Exam Present: CTA bilaterally - *Routine Cardiovascular Exam Present: RRR - *Routine Abdominal Exam Present: soft, normoactive bowel sounds. Absent: tenderness Results Labs on day of discharge: Labs from last 24 hours 03/14/21 06:28 Sodium 131 L Potassium 3.1 L Chloride 93 L Carbon Dioxide 35 H Anion Gap 6.1 BUN 22 H D Creatinine 0.90 Estimated Creat Clear 88 Estimated GFR 90 Est GFR ( Amer) 109 Glucose 94 Calcium 9.0 DS: Diagnosis - Discharge Diagnosis (1) Hypokalemia Status: Resolved (2) Alcohol withdrawal delirium, acute, hyperactive Status: Resolved (3) GWEN (acute kidney injury) Status: Resolved (4) Dehydration Status: Resolved (5) Hyponatremia Status: Resolved (6) Alcoholism Status: Chronic (7) COVID-19 virus infection Status: Acute (8) Gastritis Status: Acute (9) Seizure disorder Status: Ruled-out (10) Vomiting Status: Resolved Discharge Plan - Patient Discharge Instructions ACTIVITY: Continue current acti
[2021-03-15 07:56] LABS: Anion Gap 9.7 mEq/L (5-15); Blood Urea Nitrogen 18 mg/dl (9-20); Calcium 9.2 mg/dl (8.4-10.2); Carbon Dioxide 33 mmol/L (22.0-30.0); Chloride 94 mmol/L (98-107); Creatinine Clearance Estimated 95 mL/min (50-200); Estimated Glomerular Filt Rate 104 ml/min (>60); GFR (African American) 125 ML/MIN (>60); Glucose 98 mg/dl (74-100); Potassium 3.7 mmoL/L (3.5-5.1); Sodium 133 mmol/L (136-145)
[2021-03-15 08:00] VITALS: BP 124/83; PULSE 97; RESP 16; TEMP 36.4; O2SAT 92
[2021-03-15 08:10] LABS: Basophils # 0.1 K/mm3 (0-0.2); Basophils % 0.6 % (0.1-2.0); Eosinophils # 0.1 K/mm3 (0.0-0.4); Hematocrit 46.4 % (42.0-52.0); Lymphocytes # 2.6 K/mm3 (0.7-4.5); Lymphocytes % 20.6 % (10-50); Mean Corpuscular HGB Conc 32.3 g/dL (31.8-35.4); Mean Corpuscular Hemoglobin 31.8 pg (27.0-31.2); Mean Corpuscular Volume 98.3 fl (80-94); Mean Platelet Volume 7.6 fl (7.4-10.4); Monocytes # 1.7 K/mm3 (0.1-1.0); Monocytes % 13.4 % (1.7-9.3); Neutrophils # 8.1 K/mm3 (1.8-7.8); Neutrophils % 64.3 % (37.0-80.0); Platelet Count 402 K/mm3 (142-424); Red Blood Count 4.72 M/mm3 (4.60-6.20); Red Cell Distribution Width 14.1 % (11.5-17.5); White Blood Count 12.6 K/mm3 (4.8-10.8)
--- NOTE | 2021-03-15 08:15 | SW/DCPLANNER ---
PATIENT DISCHARGED THIS MORNING, HE STATED TO MD THAT HE DIDN'T KNOW HOW HE WAS GOING TO GET HOME.. LIVES LOCALLY AND STATED HE WILL CHECK WITH HIS MOTHER..NO ORDERS FOR ANY HOME CARE.
[2021-03-15 11:12] VITALS: BP 151/96; PULSE 84; RESP 16; TEMP 36.9; O2SAT 98
[2021-03-15 15:34] VITALS: BP 113/78; PULSE 78; RESP 16; TEMP 36.3; O2SAT 99
--- NOTE | 2021-03-15 16:19 | PC.NURSE ---
Pt is being taken down to ride
== END 2021-03-15 17:17 | disposition home or self-care (01) ==
LOC: ER 14:01 → 2ND 03-12 07:15
PROVIDERS: Admitting Provider Family Medicine; Emergency Provider Emergency Medicine; PCP Family Medicine; Visit Provider Family Medicine
DX: U07.1 COVID-19 (principal); E86.0 Dehydration; N17.9 Acute kidney failure, unspecified; K29.70 Gastritis, unspecified, without bleeding; E87.6 Hypokalemia; G40.909 Epilepsy, unspecified, not intractable, without status epilepticus; F10.231 Alcohol dependence with withdrawal delirium; Z79.899 Other long term (current) drug therapy
CPT/HCPCS: 36415; 70450; 71045; 80048; 80053; 83735; 84484; 85025; 87430; 93005; 96365; 96367; 99284; C9803; G0378; J1953; U0003; U0005

== ENCOUNTER 2021-03-16 18:11 | Emergency (ER) | payer OTHER, SELFPAY ==
[2021-03-16 17:54] VITALS: BP 132/97; PULSE 93; RESP 18; TEMP 37.1; O2SAT 98; BMI 18.1
--- NOTE | 2021-03-16 18:01 | XR_ITS ---
PROCEDURE INFORMATION: Exam: XR Chest Exam date and time: 03/16/2021 6:01 PM Age: 45 years old Clinical indication: Cough and shortness of breath; Patient HX: Short of breath, cough TECHNIQUE: Imaging protocol: XR of the chest. Views: 1 view. COMPARISON: CR XR CHEST PORTABLE 03/11/2021 4:26 PM FINDINGS: Lungs: Unremarkable. No consolidation. Pleural spaces: Unremarkable. No pleural effusion. No pneumothorax. Heart/Mediastinum: Unremarkable. No cardiomegaly. Bones/joints: Unremarkable. IMPRESSION: No acute findings.
--- NOTE | 2021-03-16 18:26 | HMH.EDGENADL ---
ED Disposition Clinical Impression: Viral pharyngitis Disposition: Home, Self-Care Condition on Discharge: Good Referrals: Arpita Carroll MD [Primary Care Provider] - - Critical Care Critical Care Time: No Attestation: On 03/16/21, the high probability of a clinically significant, sudden or life threatening deterioration of the following system(s) required my full and direct attention, intervention and personal management. The time I documented below is in addition to time spent performing reported procedures but includes the following listed in this critical care notation. Medical Decision Making - Medical Records Medical records reviewed: Yes: I reviewed the patient's medical records. - Noah Inquiry Pt receiving controlled substance: No Noah was queried for this patient: No Vital Signs: 03/16/21 17:54 Temperature 98.7 F Temperature Source Oral Pulse Rate [Right Radial] 93 H Respiratory Rate 18 Blood Pressure [Right Arm] 132/97 H Blood Pressure Mean [Right Arm] 108 Blood Pressure Source [Right Arm] Automatic Cuff Blood Pressure Position [Right Arm] Sitting 02 Sat by Pulse Oximetry 98 Oxygen Delivery Method Room Air - Lab Data Lab results reviewed: Yes: I reviewed the patient's lab results. Lab Results 03/16/21 18:20: Group A Strep Rapid Negative Orders (Tests/Meds): ED MEDICATIONS Generic Name Dose Route Start Last Admin Trade Name Freq PRN Reason Stop Dose Admin Lactated Ringer's 1,000 mls @ 999 mls/hr 03/16/21 18:15 03/16/21 18:12 Lactated Ringer's 1000 Ml Bag IV 03/16/21 19:15 999 mls/hr .Q1H1M CONSTANZA Administration Ketorolac Tromethamine 15 mg 03/16/21 18:56 Ketorolac 30mg/Ml Vial IV 03/16/21 18:57 ONCE ONE Discontinued Medications Generic Name Dose Route Start Last Admin Trade Name Freq PRN Reason Stop Dose Admin Dexamethasone Sodium Phosphate 10 mg 03/16/21 18:01 03/16/21 18:12 Dexamethasone 4mg/Ml 1ml Vial IV 03/16/21 18:02 10 mg ONCE ONE Administration ORDERS Category Date Time Status Strep Screen Confirmation Stat Micro 03/16/21 18:20 Received Medical Decision Narrative: Is a 45-year-old male with past medical history of hypertension presenting to the ED for sore throat. Patient is awake, alert, not in acute distress. Patient is hemodynamically stable, afebrile. Patient's physical exam is remarkable for cobblestoning of the posterior phalanx with swelling of the uvula. Differential includes but is not limited to quincke's disease, viral pharyngitis, low concern for strep pharyngitis, deep space abscess, peritonsillar abscess, retropharyngeal abscess. Given this a strep swab was performed. Patient was given Decadron, IV fluids. [place] much better after the Decadron and IV fluids. Patient likely has swelling due to will cause. Patient is written for decongestions to help with any postnasal drip, cobblestoning of the posterior pharynx. Also given IV Toradol. Patient feeling a bit better after the Decadron and Toradol. Strep was negative, chest x-ray was negative. He is stable for discharge. He is given strict return precautions and follow-up instructions. General Adult HPI - General Chief complaint: Upper Respiratory Infection Stated complaint: Sore throat Time Seen by Provider: 03/16/21 18:26 Mode of Arrival: EMS Limitations: No Limitations Description of Symptoms (Recalled from ER Triage Doc. by RN): Pt states that he tested positive for COVID on 03/11. C/O sore throat and states that he is unable to swallow anything to eat or drink d/t the severity of the pain. - History of Present Illness HPI narrative: Patient is a 45-year-old male with past medical history of hypertension presenting to the ED for a sore throat. Patient states that on Thursday he was diagnosed with COVID-19. Then patient has had myalgias, arthralgias, shortness of breath, cough. Patient states that his shortness of breath has improved. Patient stat
[2021-03-16 18:34] LABS: Strep Scrn Group A (Rapid) Negative (Negative)
[2021-03-16 20:53] VITALS: BP 126/90; PULSE 85; RESP 16; TEMP 36.7; O2SAT 97
== END 2021-03-16 20:56 | disposition home or self-care (01) ==
PROVIDERS: Emergency Provider Emergency Medicine; PCP Family Medicine
DX: J02.9 Acute pharyngitis, unspecified (principal); I10 Essential (primary) hypertension; F10.10 Alcohol abuse, uncomplicated; F17.210 Nicotine dependence, cigarettes, uncomplicated
CPT/HCPCS: 71045; 87430; 96365; 96375; 99283

== ENCOUNTER 2021-09-09 01:03 | Emergency (ER) | payer OTHER, SELFPAY ==
[2021-09-09 01:34] VITALS: BMI 19.5
--- NOTE | 2021-09-09 01:36 | ECG_ITS ---
APPROVED REPORT Exam: Resting ECG HR:100 bpm ECG Measurements Heart Rate 100 AXES QRSd 95 QRS 87 QT 386 T 45 QTc 443 Conclusion ATRIAL FIBRILLATION WITH RAPID VENTRICULAR RESPONSE POSSIBLE RIGHT VENTRICULAR CONDUCTION DELAY [RSR (QR) IN V1/V2] ABNORMAL RHYTHM ECG UNCONFIRMED REPORT Electronically signed by : Reg Olivo MD 09/10/2021 21:10:43
--- NOTE | 2021-09-09 01:36 | PC.NURSE ---
call to dispatch to request transportation of family member to ER
--- NOTE | 2021-09-09 01:39 | PC.NURSE ---
Lauri Ohara notified of patients , awaiting his arrival
[2021-09-09 01:45] LABS: Basophils # 0.1 K/mm3 (0-0.2); Basophils % 0.5 % (0.1-2.0); Eosinophils % 0.2 % (0.1-12.0); Hematocrit 45.1 % (42.0-52.0); Hemoglobin 14.8 g/dL (14.1-18.0); Lymphocytes # 3.7 K/mm3 (0.7-4.5); Lymphocytes % 21.5 % (10-50); Mean Corpuscular HGB Conc 32.8 g/dL (31.8-35.4); Mean Corpuscular Hemoglobin 33.3 pg (27.0-31.2); Mean Corpuscular Volume 101.5 fl (80-94); Mean Platelet Volume 10.6 fl (7.4-10.4); Monocytes # 2.2 K/mm3 (0.1-1.0); Monocytes % 12.6 % (1.7-9.3); Neutrophils # 11.2 K/mm3 (1.8-7.8); Neutrophils % 65.2 % (37.0-80.0); Platelet Count 184 K/mm3 (142-424); Red Blood Count 4.44 M/mm3 (4.60-6.20); Red Cell Distribution Width 14.6 % (11.5-17.5); White Blood Count 17.1 K/mm3 (4.8-10.8)
[2021-09-09 01:49] LABS: MANUAL DIFFERENTIAL MANUAL DIFFERENTIAL (MANUAL DIFF)
[2021-09-09 01:50] LABS: Ethyl Alcohol 79 mg/dl (0-10)
--- NOTE | 2021-09-09 01:54 | PC.NURSE ---
0100 Patient arrived to [facility] via [facility]. ACLS already initiated by EMS. Per ems, 2 amps of epi given en route, 20g IV placed in left ac at scene. EMS states that they were called to scene at 0031, and arrived at 0038, immediately began attempts of resuscitation. Pt was pea upon arrival and condition did not change while en route. Family was uncertain of how long patient was pulseless. 0101 Patient brought into hospital, transferred to trauma room 3, moved from ems stretcher to hospital stretcher. Pt was receiving chest compressions and being bagged during these transfers. Patient has an lmac in place during transfer. 0102 0.1mg/ml Epinephrine given by Jess Spicer Rn. 0102 2mg narcan given by Jess Spicer Rn. 0103 Pulse check ordered by . Rhythm stated by as being PEA. 0103 Compressions resumed. 0104 Pulse check rechecked. Pulse detected 0115 Sinus tach per 0105 Pulse 120 Sinus tach 0106 Baez cather inserted. Respiratory therapy and continued attempting intubation of patient. 0106 Rhythm changed to pea. Compressions resumed. 0107 0.1mg/ml Epinephrine given by Jess Spicer Rn. 0108 2mg narcan given by Jess Spicer Rn. 0109 Pulse check. PEA verified by . 0110 0.1mg/ml Epinephrine given by Jess Spicer Rn. 0110 Patient successfully intubated. 0111 Pulse check. EKG performed by Oscar Velazquez per . Pt rhythm afib. bbb. 0112 Patient lost pulse. Became pea. Resumed chest compressions. 0115 0.1mg/ml Epinephrine given by Jess Spicer Rn. 0118 1 amp of sodium bicarbonate given 0118 0.1mg/ml Epinephrine given by Jess Spicer Rn. 0119 Patient extubated due to fear that the tube was improperly placed due to stomach swelling. Compression continuing at this point. Patient being bagged by Respiratory therapy. 0123 Compressions held per for pulse check. Patient is pea. It was determined that resuscitation efforts had been going on for 52 minutes at this point. 0127 requested that compressions be held. Pt time of announced by at 0127. 0129 Stockroom Worker notified of patient . 0150 Patients mother arrived at [facility]. 0200 Stockroom Worker arrived at [facility].
[2021-09-09 02:02] LABS: Lymphocytes % 33 % (10-50); Macrocytosis 2+; Neutrophils % 57 % (42-76); Platelet Estimate Normal; Total Cells Counted 100
[2021-09-09 02:14] LABS: Troponin I 0.04 ng/ml (0.00-0.034)
--- NOTE | 2021-09-09 02:22 | PC.NURSE ---
Called [facility] at 0211, spoke with Behzad Bazzi , . Advised to call back with tugboat captain determination regarding rather patient will be a candidate for donation
--- NOTE | 2021-09-09 02:23 | [facility].EDCPR ---
ED Disposition Clinical Impression: Cardiac arrest Disposition: Condition on Discharge: Critical Referrals: Arpita Carroll MD [Primary Care Provider] - - Critical Care Critical Care Time: No Attestation: On 09/09/21, the high probability of a clinically significant, sudden or life threatening deterioration of the following system(s) required my full and direct attention, intervention and personal management. The time I documented below is in addition to time spent performing reported procedures but includes the following listed in this critical care notation. [facility] Code Documentation - Arrest Information Outside of Hospital The Code Document Section documentation for [id number] Hay Morales was populated with data that defaulted in from the health outcomes liaison in the Code Assessment on f_Reg Service Date] to provide within this report, the status and treatment of the patient in the ED during a Code. This documentation will be supplemented with my direct findings within the body of the report. Date Treatment Initiated: 09/09/21 Time Treatment Initiated: 00:38 Treatment Initiated By: EMS Location of Arrest: home Arrest Witnessed: No Estimated Down Time: 10 minutes - ALS Code Inititation ALS Initiated By: EMS ALS Type: ACLS ALS Initiated Start Time: 00:38 - Patient Condition At Code Start Condition of Patient at Start of Code: Pulseless Monitoring Devices: ECG Monitor, Pulse Oximeter - Circulation Initial Cardiac Rhythm: PEA - Oxygenation Oxygen Breathing Status: Apneic - Labs Fingerstick Blood Glucose: 314 - Assisted Ventilation ETT Insertion Time: 01:10 ETT Size: 7 ETT Insertion Site: Oral Endotracheal ETT Position at Lip: 22 ETT Tube Inserted By: - Code End Time Code Ended: 01:26 Patient Successfully Resuscitated: No Reason Code Ended: - Efforts Terminated Family Members Present During Code: No Names of All Individuals Present at Code: Tana Roberts, Tory Moss, Oscar Velazquez, Radhika Brand, Jess Spicer, Samaria Crum, Dr.Gainey Saleem - Patient Expiration Date: 09/09/21 Expiration Time: :27 Pronounced by: Time Pronounced: 01:27 Post Mortem Care Provided: Yes Organ Donor: No Freddy Notified: Yes Attending Physician Called: No Medical Decision Making - Medical Records Medical records reviewed: Yes: I reviewed the patient's medical records. - Noah Inquiry Pt receiving controlled substance: No Vital Signs: 09/09/21 01:29 Oxygen Flow Rate (LPM) 15 - Lab Data Lab results reviewed: Yes: I reviewed the patient's lab results. Lab Results 09/09/21 01:18: WBC 17.1 H, RBC 4.44 L, Hgb 14.8, Hct 45.1, MCV 101.5 H, MCH 33.3 H, MCHC 32.8, RDW 14.6, Plt Count 184, MPV 10.6 H, Neut % (Auto) 65.2, Lymph % (Auto) 21.5, [place] % (Auto) 12.6 H, Eos % (Auto) 0.2, Baso % (Auto) 0.5, Neut # (Auto) 11.2 H, Lymph # (Auto) 3.7, Irion # (Auto) 2.2 H, Eos # (Auto) 0.0, Baso # (Auto) 0.1, Total Counted 100, Neutrophils % (Manual) 57, Band Neutrophils % 10.0 H, Lymphocytes % (Manual) 33, Platelet Estimate Normal, Macrocytosis 2+ 09/09/21 01:18: Troponin I 0.04 H 09/09/21 01:18: Plasma/Serum Alcohol 79 H Result diagrams: 09/09/21 01:18 Orders (Tests/Meds): ED MEDICATIONS Discontinued Medications Generic Name Dose Route Start Last Admin Trade Name Katlyn PRN Reason Stop Dose Admin Epinephrine HCl 1 mg 09/09/21 01:02 09/09/21 01:02 Epinephrine 0.1 Mg/Ml 10ml Syringe (Crash Cart) IV 09/09/21 01:03 1 mg ONCE ONE Administration Epinephrine HCl 1 mg 09/09/21 01:07 09/09/21 01:07 Epinephrine 0.1 Mg/Ml 10ml Syringe (Crash Cart) IV 09/09/21 01:08 1 mg ONCE ONE Administration Epinephrine HCl 1 mg 09/09/21 01:10 09/09/21 01:10 Epinephrine 0.1 Mg/Ml 10ml Syringe (Crash Cart) IV 09/09/21 01:11 1 mg ONCE ONE Administration Epinephrine HCl 1 mg 09/09/21 01:43 09/09/21 01:49 Epinephrine 0.1 Mg/Ml 10ml Syrin
[2021-09-09 02:25] LABS: Alanine Aminotransferase 91 U/L (12-78); Albumin/Globulin Ratio 1.4 (1.1-1.8); Alkaline Phosphatase 94 U/L (38-126); Anion Gap 68.8 mEq/L (5-15); Aspartate Amino Transferase 190 U/L (17-59); Bilirubin,Total 3.1 mg/dl (0.2-1.3); Calcium 9.3 mg/dl (8.4-10.2); Globulin 3.5 g/dL (1.3-3.2); Potassium 4.8 mmoL/L (3.5-5.1); Sodium 134 mmol/L (136-145); Total Protein,Serum 8.5 g/dl (6.3-8.2)
[2021-09-09 02:30] LABS: Chloride 64 mmol/L (98-107)
[2021-09-09 02:32] LABS: Acetaminophen < 10 ug/ml (10-30); Blood Urea Nitrogen 87 mg/dl (9-20); Carbon Dioxide 6 mmol/L (22.0-30.0); Glucose 39 mg/dl (74-100); Salicylate < 1.0 mg/dL (2.0-20.0)
[2021-09-09 02:33] LABS: Creatinine Clearance Estimated 15 mL/min (50-200); Estimated Glomerular Filt Rate 11 ml/min (>60)
[2021-09-09 02:34] LABS: GFR (African American) 14 ML/MIN (>60)
--- NOTE | 2021-09-09 02:50 | PC.NURSE ---
Spoke with Lauri Ohara, street inspector, who states that he is comfortable releasing the body to [facility], pending decision by patients son, Edgar Morales, phone number [phone]
--- NOTE | 2021-09-09 02:54 | PC.NURSE ---
Relayed message from [employer] T[employer] Engineer to [place] with [employer]. Was advised that child welfare caseworker ,Behzad, will be calling soon to follow up on son's decision.
[2021-09-09 05:29] VITALS: BP 00/00; PULSE 0; RESP 0; TEMP -17.7; TEMP 0; O2SAT 0
== END 2021-09-09 05:40 | disposition expired ==
PROVIDERS: Emergency Provider Emergency Medicine; PCP Family Medicine
DX: I46.9 Cardiac arrest, cause unspecified (principal)
CPT/HCPCS: 31500; 80053; 80329; 84484; 85007; 85025; 92950; 93005; 96374; 96375; 96376; 99285; J2310